=== PATIENT | female | born 1965 ===

== ENCOUNTER 2016-12-17 15:39 | Emergency (ER) | payer SELFPAY ==
[2016-12-17 15:45] VITALS: BP 108/66; PULSE 88; RESP 18; TEMP 98.1; O2SAT 99; BMI 25.4
--- NOTE | 2016-12-17 16:17 | ED PDOC ---
Arrival/HPI - General Chief Complaint: Female Genitourinary Time Seen by Provider: 12/17/16 16:14 Historian: Patient - History of Present Illness Narrative History of Present Illness (Text): 12/17/16 16:19 Patient presents c/o painless "bulge" she feels to the vagina for the past few days. Reports no abdominal pain, N/V/D, urinary symptoms, vaginal d/c or bleeding, fever, rash, has no other complaints. States that she saw her chief controller 2 months ago and had a normal pap smear. PMD [facility] Past Medical History - Provider Review Nursing Documentation Reviewed: Yes - Infectious Disease Hx of Infectious Diseases: None - Tetanus Immunization Tetanus Immunization: Unknown - Past Medical History Past Medical History: No Previous - Cardiac Hx Hypertension: Yes - Pulmonary Hx Respiratory Disorders: No - Neurological Hx Neurological Disorder: No - HEENT Hx HEENT Disorder: No - Renal Hx Renal Disorder: No - Endocrine/Metabolic Hx Endocrine Disorders: No - Hematological/Oncological Hx Blood Disorders: No - Integumentary Hx Dermatological Disorder: No - Musculoskeletal/Rheumatological Hx Musculoskeletal Disorders: No - Gastrointestinal Hx Gastrointestinal Disorders: No - Genitourinary/Gynecological Hx Genitourinary Disorders: No - Psychiatric Hx Psychophysiologic Disorder: No Hx Substance Use: No - Past Surgical History Past Surgical History: No Previous - Anesthesia Hx Anesthesia: No Hx Anesthesia Reactions: No Hx Malignant Hyperthermia: No - Suicidal Assessment Feels Threatened In Home Enviroment: No Family/Social History - Physician Review Nursing Documentation Reviewed: Yes Family/Social History: No Known Family HX Smoking Status: Never Smoked Hx Alcohol Use: No Hx Substance Use: No Hx Substance Use Treatment: No Allergies/Home Meds Allergies/Adverse Reactions: Allergies No Known Allergies Allergy (Verified 12/17/16 15:45) Home Medications: Home Meds Medication Instructions Recorded Confirmed HCTZ/Losartan Potassium [Hyzaar 1 tab PO DAILY 03/30/16 12/17/16 12.5 MG-50 MG] Review of Systems - Review of Systems Constitutional: Normal. absent: Fatigue, Weight Change, Fevers Respiratory: Normal. absent: SOB, Cough, Sputum Cardiovascular: Normal. absent: Chest Pain, Palpitations, Edema Gastrointestinal: Normal, Other (vaginal discomfort). absent: Abdominal Pain, Stool Changes, Appetite Changes Genitourinary Female: Normal. absent: Dysuria, Frequency, Hematuria, Urine Output Changes, Vaginal Bleeding, Vaginal Discharge Skin: Normal. absent: Rash, Pruritis, Skin Lesions Physical Exam Vital Signs Temp Pulse Resp BP Pulse Ox 12/17/16 15:43 98.1 F 88 18 108/66 99 Temperature: Afebrile Blood Pressure: Normal Pulse: Regular Respiratory Rate: Normal Appearance: Positive for: Well-Appearing, Non-Toxic, Comfortable Pain Distress: None Mental Status: Positive for: Alert and Oriented X 3 - Systems Exam Head: Present: Atraumatic, Normocephalic Neck: Present: Normal Range of Motion. No: MIDLINE TENDERNESS Respiratory/Chest: Present: Clear to Auscultation, Good Air Exchange. No: Respiratory Distress, Accessory Muscle Use, Wheezes, Rhonchi Cardiovascular: Present: Regular Rate and Rhythm, Normal S1, S2. No: Murmurs Abdomen: Present: Normal Bowel Sounds. No: Tenderness, Distention, Rebound, Guarding Genitourinary/Pelvic Exam: Present: Cervical os Closed, Other ((+) visible cervix at the vaginal introitous ). No: Vaginal Discharge, Vaginal Bleeding, Vaginal Lesions, Cervical Motion Tendernes Upper Extremity: Present: Normal Inspection Lower Extremity: Present: Normal Inspection Neurological: Present: GCS=15, CN II-XII Intact Skin: Present: Warm, Dry. No: Rashes Psychiatric: Present: Alert, Oriented x 3 Medical Decision Making ED Course and Treatment: 12/17/16 16:15 51 yo F presents to the ER for uterine prolapse. Prolapse reduced by PA using a speculum with success. Pt advised to f/u with her chief controller without fail in 2 days. - PA / CLINICAL LAB ASSISTANT / Resident Statement MD/DO has reviewed & agrees with the documentation as recorded. Disposition/Present on Arrival - Present on Arrival Any Indicators Present on Arrival: No History of DVT/PE: No History of Uncontrolled Diabetes: No Urinary Catheter: No History of Decub. Ulcer: No History Surgical Site Infection Following: None - Disposition Have Diagnosis and Disposition been Completed?: Yes Diagnosis: Uterine prolapse Disposition: HOME/ ROUTINE Disposition Time: 16:14 Patient Plan: Discharge Condition: STABLE Discharge Instructions (ExitCare): Uterine Prolapse (ED) Print Language: GUAMANIAN Additional Instructions: Follow up with your chief controller in 2 days without fail. Return to the ER for any new symptoms. Referrals: William Izaguirre MD [Primary Care Provider] - Follow up with primary
== END 2016-12-17 16:31 | disposition home or self-care (01) ==
LOC: ED 15:39
DX: N81.4 Uterovaginal prolapse, unspecified (principal)

== ENCOUNTER 2017-06-07 09:11 | Inpatient (IN) | payer OTHER ==
[2017-06-07] MEDS ORDERED: Sodium Chloride 0.9% 1,000 ML IV STA (09:30)
--- NOTE | 2017-06-07 09:44 | CT ---
PROCEDURE: CT HEAD WITHOUT CONTRAST. HISTORY: cva COMPARISON: 09/23/2015 TECHNIQUE: Axial computed tomography images were obtained through the head/brain without intravenous contrast. Radiation dose: Total exam DLP = 678.13 mGy-cm. This CT exam was performed using one or more of the following dose reduction techniques: Automated exposure control, adjustment of the mA and/or kV according to patient size, and/or use of iterative reconstruction technique. FINDINGS: HEMORRHAGE: No intracranial hemorrhage. BRAIN: No mass effect or edema. No atrophy or chronic microvascular ischemic changes. VENTRICLES: Unremarkable. No hydrocephalus. CALVARIUM: Unremarkable. PARANASAL SINUSES: Unremarkable as visualized. No significant inflammatory changes. MASTOID AIR CELLS: Unremarkable as visualized. No inflammatory changes. OTHER FINDINGS: None. IMPRESSION: Normal CT of the Head. No evidence of acute infarct. The findings in this examination were discussed by telephone with Dr. Velasco at 9:42 a.m. on 06/07/2017.
--- NOTE | 2017-06-07 09:59 | ED PDOC ---
Arrival/HPI - General Chief Complaint: Weakness/Neurological Deficit Time Seen by Provider: 06/07/17 09:28 Historian: Patient - History of Present Illness Narrative History of Present Illness (Text): 06/07/17 09:28 Noa Diamond is a 52 year old female, whose past medical history includes hypertension, who presents to the emergency department complaining of nausea, vomiting, and diarrhea at 05:00 this morning. At 08:30, patient states that she developed generalized weakness, sweats, and numbness, as well as a heavy tongue making it difficult to speak which last for about 3-5 minutes and resolved. Patient came to the emergency department with no acute deficits. Time/Duration: 4-6 hours Symptom Onset: Gradual Symptom Course: Improving Activities at Onset: Light Context: Home Past Medical History - Provider Review Nursing Documentation Reviewed: Yes - Infectious Disease Hx of Infectious Diseases: None - Tetanus Immunization Tetanus Immunization: Unknown - Past Medical History Past Medical History: No Previous - Cardiac Hx Cardiac Disorders: Yes Hx Hypertension: Yes - Pulmonary Hx Respiratory Disorders: No - Neurological Hx Neurological Disorder: No - HEENT Hx HEENT Disorder: No - Endocrine/Metabolic Hx Endocrine Disorders: No - Hematological/Oncological Hx Blood Disorders: No - Integumentary Hx Dermatological Disorder: No - Musculoskeletal/Rheumatological Hx Musculoskeletal Disorders: No - Gastrointestinal Hx Gastrointestinal Disorders: No - Genitourinary/Gynecological Hx Genitourinary Disorders: No - Psychiatric Hx Psychophysiologic Disorder: No Hx Substance Use: No - Past Surgical History Past Surgical History: No Previous - Anesthesia Hx Anesthesia: No Hx Anesthesia Reactions: No Hx Malignant Hyperthermia: No - Suicidal Assessment Feels Threatened In Home Enviroment: No Family/Social History - Physician Review Nursing Documentation Reviewed: Yes Family/Social History: No Known Family HX Smoking Status: Never Smoked Hx Alcohol Use: No Hx Substance Use: No Hx Substance Use Treatment: No Allergies/Home Meds Allergies/Adverse Reactions: Allergies No Known Allergies Allergy (Verified 06/07/17 09:24) Home Medications: Home Meds Medication Instructions Recorded Confirmed Gemfibrozil [Lopid] 600 mg PO BID 06/07/17 06/07/17 Losartan Potassium [Losartan 100 mg PO DAILY 06/07/17 06/07/17 Potassium] amLODIPine [Norvasc] 10 mg PO DAILY 06/07/17 06/07/17 hydroCHLOROthiazide [Hydrodiuril] 25 mg PO DAILY 06/07/17 06/07/17 Review of Systems - Physician Review All systems were reviewed & negative as marked: Yes - Review of Systems Constitutional: Other (generalized weakness, sweats, and numbness). absent: Fevers Eyes: absent: Vision Changes ENT: Other (heavy tongue, causing difficulty speaking). absent: Hearing Changes Respiratory: absent: SOB, Cough Cardiovascular: absent: Chest Pain Gastrointestinal: absent: Abdominal Pain Genitourinary Female: absent: Dysuria, Frequency Musculoskeletal: absent: Arthralgias, Back Pain Skin: absent: Rash, Pruritis Neurological: absent: Headache, Dizziness Endocrine: absent: Diaphoresis Hemo/Lymphatic: absent: Adenopathy Psychiatric: absent: Anxiety, Depression Physical Exam Vital Signs Reviewed: Yes Vital Signs Temp Pulse Resp BP Pulse Ox 06/07/17 11:34 78 22 149/87 100 06/07/17 09:49 97.9 F 77 17 139/78 99 Temperature: Afebrile Blood Pressure: Normal Pulse: Regular Respiratory Rate: Normal Appearance: Positive for: Well-Appearing, Non-Toxic, Comfortable Pain Distress: None Mental Status: Positive for: Alert and Oriented X 3 Finger Stick Blood Glucose: 122 Medical Decision Making ED Course and Treatment: 06/07/17 09:00 Impression: 52 year old female complaining of nausea, vomiting, and diarrhea at 05:00 this morning. At 08:30, patient states that she developed generalized weakness, sweats, and numbness, as well as a heavy tongue making it difficult to speak which last for about 3-5 minutes. Differential Diagnosis included but are not limited to: TIA Plan: -- EKG -- Labs -- IV fluids -- Reassess and disposition Prior Visits: Notes and results from previous visits were reviewed. Patient was last seen in the emergency department on 12/26/16 for a "bulge" in the uterine area. Patient was discharged home. Progress Notes: EKG: Ordered, reviewed, and independently interpreted the EKG. Rate : 77 BPM Rhythm : NSR Interpretation : No ST-segment elevations or depressions, no T-wave inversions, normal intervals. Comparison : No previous EKG for comparison. 06/07/17 09:20 Code Stroke called on patient. 06/07/17 10:[address] w/o contrast: Creator : Shekhar Nichols MD FINDINGS: HEMORRHAGE: No intracranial hemorrhage. BRAIN:No mass effect or edema. No atrophy or chronic microvascular ischemic changes. VENTRICLES:Unremarkable. No hydrocephalus. CALVARIUM:Unremarkable. PARANASAL SINUSES:Unremarkable as visualized. No significant inflammatory changes. MASTOID AIR CELLS:Unremarkable as visualized.No inflammatory changes. OTHER FINDINGS:None. IMPRESSION: Normal CT of the Head. No evidence of acute infarct. - Lab Interpretations Lab Results: 06/07/17 10:28 06/07/17 10:28 Lab Results 06/07/17 11:29: Urine Color Yellow, Urine Appearance Clear, Urine pH 6.0, Ur Specific [place] 1.025, Urine Protein 100 H, Urine Glucose (UA) Negative, Urine Ketones Negative, Urine Blood Large H, Urine Nitrate Negative, Urine Bilirubin Negative, Urine Urobilinogen 0.2, Ur Leukocyte Esterase Negative, Urine RBC 10 - 15, Urine WBC 0 - 2, Ur Epithelial Cells 4 - 5, Amorphous Sediment Few, Urine Bacteria Many, Fine Granular Casts 0 - 2, Coarse Granular Casts Trace H 06/07/17 10:51: POC Glucose (mg/dL) 102 06/07/17 10:28: Sodium 143, Potassium 4.9, Chloride 108 H, Carbon Dioxide 19 L, Anion Gap 21 H, BUN 31 H, Creatinine 1.1, Est GFR ( Amer) > 60, Est GFR ( Non-Af Amer) 53, Random Glucose 107, Calcium 10.7 H, Total Bilirubin 0.5, AST 60 H D, ALT 41, Alkaline Phosphatase 106, Total Protein 9.1 H, Albumin 4.7, Globulin 4.4, Albumin/Globulin Ratio 1.1 06/07/17 10:28: PT 10.4, INR 0.95 06/07/17 10:28: WBC 18.7 H D, RBC 4.74, Hgb 13.4 D, Hct 40.3, MCV 85.0, MCH 28.3, MCHC 33.3, RDW 13.9, Plt Count 322, MPV 9.9, Gran % 85.3 H, Lymph % (Auto ) 10.3 L, [place] % (Auto) 3.3, Eos % (Auto) 1.0 L, Baso % (Auto) 0.1, Gran # 15.92 H, Lymph # 1.9, Wal[place] # 0.6, Eos # 0.2, Baso # 0.02 I have reviewed the lab results: Yes Interpretation: All labs normal - RAD Interpretation Radiology Orders: 06/07/17 09:29 HEAD W/O (CODE STROKE) [CT] Stat 06/07/17 11:29 CHEST PORTABLE [RAD] Stat - Medication Orders Current Medication Orders: Sodium Chloride (Sodium Chloride 0.9%) 1,000 mls @ 30 mls/hr IV .Q24H STA Stop: 06/08/17 09:29 Last Admin: 06/07/17 10:45 Dose: 30 mls/hr eMAR Start Stop Document 06/07/17 10:45 RG (Rec: 06/07/17 10:46 RG [id number]) Intravenous Solution Start Date 06/07/17 Start Time 10:45 Discontinued Medications Aspirin (Aspirin Chewable) 324 mg PO STAT STA Stop: 06/07/17 12:37 Metoclopramide HCl (Reglan) 10 mg IVP STAT STA Stop: 06/07/17 11:26 Last Admin: 06/07/17 12:02 Dose: 10 mg IVP Administration Document 06/07/17 12:02 RG (Rec: 06/07/17 12:02 RG [id number]) Charges for Administration # of IVP Administrations 1 - Transfer of Care Other: Pt likely had a panic attack but since we cannot R/O tia WILL ADMIT NIHSS Scale (Donie) Time Performed: 10:00 - How Severe is the Stoke Baseline LOC to Questions: 0=Both comments correct LOC to commands: 0=Obeys both correctly Best Gaze: 0=Normal Visual: 0=No visual loss Facial: 0=Normal Motor Arm - Left: 0=No drift Motor Arm - Right: 0=No drift Motor Leg - Left: 0=No drift Motor Leg - Right: 0=No drift Limb Ataxia: 0=Absent Sensory: 0=Normal Best Language: 0=No aphasia Dysarthia: 0=Normal articulation Extinction & Inattention (Neglect): 0=Normal, no object Disposition/Present on Arrival - Present on Arrival Any Indicators Present on Arrival: No History of DVT/PE: No History of Uncontrolled Diabetes: No Urinary Catheter: No History of Decub. Ulcer: No History Surgical Site Infection Following: None - Disposition Have Diagnosis and Disposition been Completed?: Yes Diagnosis: TIA (transient ischemic attack) Disposition: HOSPITALIZED Disposition Time: 12:45 Patient Plan: Observation Condition: GOOD
[2017-06-07 10:43] LABS: BASO # 0.02 K/mm3 (0.0-2.0); BASO % 0.1 % (0.0-3.0); EOS # 0.2 (0.0-0.7); GRAN # 15.92 (1.4-6.5); GRAN % 85.3 % (50.0-68.0); HEMATOCRIT 40.3 % (36.0-48.0); LYMPH # 1.9 (1.2-3.4); LYMPH % 10.3 % (22.0-35.0); MEAN CORPUSCULAR HEMOGLOBIN 28.3 pg (25.0-35.0); MEAN CORPUSCULAR HGB CONC 33.3 g/dl (31.0-37.0); MEAN PLATELET VOLUME 9.9 fl (7.0-11.0); MONO # 0.6 (0.1-0.6); MONO % 3.3 % (1.0-6.0); RED CELL DISTRIBUTION WIDTH 13.9 % (11.5-14.5); WHITE BLOOD COUNT 18.7 10^3/ul (4.5-11.0)
[2017-06-07 10:52] LABS: INR 0.95 (0.93-1.08)
[2017-06-07 10:59] LABS: ALB/GLOB RATIO 1.1 (1.1-1.8); ALKALINE PHOSPHATASE 106 U/L (38-126); ALT/SGPT 41 U/L (7-56); AST/SGOT 60 U/L (14-36); BILIRUBIN,TOTAL 0.5 mg/dL (0.2-1.3); BLOOD UREA NITROGEN 31 mg/dL (7-21); CALCIUM 10.7 mg/dL (8.4-10.5); CARBON DIOXIDE 19 mmol/L (21-33); CHLORIDE 108 mmol/L (98-107); GFR AFRICAN-AMERICAN > 60; GLUCOSE,RANDOM 107 mg/dL (70-110); POTASSIUM 4.9 mmol/L (3.6-5.0); SODIUM 143 mmol/L (132-148); TOTAL PROTEIN 9.1 g/dL (5.8-8.3)
[2017-06-07 12:27] LABS: URINE BILIRUBIN NEGATIVE (NEGATIVE); URINE BLOOD LARGE (NEGATIVE); URINE GLUCOSE (UA) NEGATIVE (NEGATIVE); URINE KETONE NEGATIVE (NEGATIVE); URINE LEUKOCYTE ESTERASE NEGATIVE Leu/uL (NEGATIVE); URINE PROTEIN 100 mg/dL (<30 mg/dL); URINE UROBILINOGEN 0.2 E.U./dL (<1 E.U./dL)
[2017-06-07 12:31] LABS: URINE APPEARANCE CLEAR (CLEAR); URINE COLOR YELLOW (YELLOW)
[2017-06-07 12:41] LABS: URINE WBC 0 - 2 /hpf (0-6)
[2017-06-07 12:42] LABS: URINE BACTERIA MANY (NEG)
[2017-06-07 12:43] LABS: URINE AMORPHOUS SEDIMENT FEW
[2017-06-07 12:48] LABS: CHOLESTEROL 244 mg/dL (130-200)
--- NOTE | 2017-06-07 14:06 | RAD ---
HISTORY: tia COMPARISON: Comparison chest 10/21/2015. FINDINGS: LUNGS: No active pulmonary disease. PLEURA: No significant pleural effusion identified, no pneumothorax apparent. CARDIOVASCULAR: Normal. OSSEOUS STRUCTURES: No significant abnormalities. VISUALIZED UPPER ABDOMEN: Normal. OTHER FINDINGS: None. IMPRESSION: No active disease.
--- NOTE | 2017-06-07 16:03 | MRI ---
PROCEDURE: MRI BRAIN WITHOUT CONTRAST HISTORY: Neurologic changes; TIA versus CVA COMPARISON: Comparison made with CT scan of the brain dated 06/07/2017 TECHNIQUE: Multiplanar, multisequence MR images of the brain were obtained without intravenous contrast enhancement. FINDINGS: HEMORRHAGE: No acute parenchymal, subarachnoid nor extra-axial hemorrhage. No evidence of hemosiderin deposition identified on gradient echo weighted sequence DWI: No evidence of an acute or early subacute infarction seen on diffusion imaging. BRAIN PARENCHYMA: There are a several tiny nonspecific focal areas of increased T2 signal seen scattered about the subcortical white matter of the left and to a lesser degree right frontal lobes. Changes are nonspecific though could represent minimal chronic sequela of small vessel disease. Differential diagnosis would include sequela of old trauma, migraine headaches, post infectious and or inflammatory etiologies. Atypical presentation of a demyelinating disease process would be less likely in the absence of a pertinent clinical history though not completely excluded. . Note made of minimal slightly confluent prolonged T2 signal changes in the periventricular white matter likely representing mild FLAIR related CSF interface artifact. The possibility of some minimal chronic periventricular white matter ischemic changes not completely excluded. Ventricular and sulcal size are within range of normal for this patient's stated age. VENTRICLES: No obstructive hydrocephalus. CRANIUM: Unremarkable. ORBITS: Orbits and contents grossly unremarkable. PARANASAL SINUSES/MASTOIDS: Mild moderate delete polypoid like mucosal thickening both maxillary antra. Minor mucosal thickening in the ethmoid air complex extending superiorly into inferior aspect of the frontal sinus more so on the left than the right. VASCULAR SYSTEM: Visualized major vascular flow voids at skull base patent. OTHER FINDINGS: None. IMPRESSION: No acute intracranial hemorrhage or infarct. There are several tiny nonspecific focal areas of increased T2 signal seen scattered about the frontal subcortical white matter bilaterally right more left. These findings most likely represent minimal chronic sequela of small vessel disease however see above discussion for additional differential diagnostic considerations. Mucoperiosteal inflammatory changes within the aforementioned paranasal sinuses.
--- NOTE | 2017-06-07 16:37 | CT ---
PROCEDURE: CT Abdomen and Pelvis without intravenous contrast HISTORY: abdominal pain COMPARISON: 10/21/2015 TECHNIQUE: Without contrast.. Contrast Dose: 0 Radiation dose: Total exam DLP = 326.10 mGy-cm. This CT exam was performed using one or more of the following dose reduction techniques: Automated exposure control, adjustment of the mA and/or kV according to patient size, and/or use of iterative reconstruction technique. FINDINGS: LOWER THORAX: Cystic left paravertebral smooth ovoid mass, 2.2 x 2.7 cm. This is seen along left lateral aspect of the T10 vertebra, posterior/lateral to the aorta. Minimally enlarged compared to prior examination. Etiology uncertain. Consider cystic schwannoma, lymphangioma. LIVER: Unremarkable. No gross lesion or ductal dilatation. GALLBLADDER AND BILE DUCTS: Cholelithiasis. 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 PANCREAS: Unremarkable. No gross lesion or ductal dilatation. SPLEEN: Unremarkable. ADRENALS: Unremarkable. No mass. KIDNEYS AND URETERS: Unremarkable. No hydronephrosis. No solid mass. VASCULATURE: Unremarkable. No aortic aneurysm. BOWEL: Unremarkable. No obstruction. No gross mural thickening. APPENDIX: Unremarkable. Normal appendix. PERITONEUM: Unremarkable. No free fluid. No free air. LYMPH NODES: Unremarkable. No enlarged lymph nodes. BLADDER: Unremarkable. REPRODUCTIVE: Unremarkable uterus. Possible left ovarian cyst, 3.3 cm. Correlate with pelvic ultrasound. BONES: No acute fracture. OTHER FINDINGS: None. IMPRESSION: No acute abnormality. Slight increase in size of cystic left paravertebral mass adjacent to the T10 vertebra. 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 No evidence of cholecystitis. Possible 3.3 cm left ovarian cyst. Correlate with pelvic ultrasound.
--- NOTE | 2017-06-07 16:48 | CP.PCM.HP ---
<Vandana Jose - Last Filed: 06/07/17 16:13> History of Present Illness - History of Present Illness History of Present Illness: Vandana Jose, PGY1, H&P for Dr Mi: CC: transient dysarthria and lower extremity weakness, nausea, vomiting, diarrhea 52 years old female with hx of HTN, presents for transient dysarthria and lower extremity weakness x 1-2 minutes. Pt states that she woke up this morning, with nausea and vomiting, 3-4 episodes, nonbilious and nonbloody, yellow food. She then started having mid abdominal pain and having yellow, non bloody diarrheal episodes, 7 since this AM. Pt denies unusual food, sick contacts, recent travel , recent antibiotic/steroid use. Denies dyspepsia, bloating, hematemesis, hematochezia, melena, rectal pain. Pt also states that in the afternoon, she started feeling a "purple tongue," with speech difficulty and bilateral lower extremity weakness, which lasted 1-2 minutes, with full resolution after the episode. Denies postictal confusion, LOC, syncope, convulsions, tongue biting, urinary/bladder incontinence, history of seizures/prior episodes. In ED, pt afebrile, with leukocytosis 18.7, mildly elevated AST 60, ALT 41, UA shows many bacteria. Pt has no neurological deficits. Denies sob, cp, pleuritic chest pain, cough, chest congestion, dysuria, hematuria, leg swelling. Reports increased urinary frequency. 12 point ROS obtained and reviewed, and negative, except as noted per HPI. PMH: HTN PSH: denies All: NKA FH: denies SH: Lives with son and family. Denies alcohol/tobacco/drug use. PMD Dr Izaguirre Home meds: as per meds recs Present on Admission - Present on Admission Any Indicators Present on Admission: No History of DVT/PE: No History of Uncontrolled Diabetes: No Urinary Catheter: No Decubitus Ulcer Present: No Review of Systems - Review of Systems All systems: reviewed and no additional remarkable complaints except Review of Systems: as per HPI Past Patient History - Infectious Disease Hx of Infectious Diseases: None - Tetanus Immunizations Tetanus Immunization: Unknown - Past Social History Smoking Status: Never Smoked - CARDIAC Hx Cardiac Disorders: Yes Hx Hypertension: Yes - PULMONARY Hx Respiratory Disorders: No - NEUROLOGICAL Hx Neurological Disorder: No - HEENT Hx HEENT Problems: No - ENDOCRINE/METABOLIC Hx Endocrine Disorders: No - HEMATOLOGICAL/ONCOLOGICAL Hx Blood Disorders: No - INTEGUMENTARY Hx Dermatological Problems: No - MUSCULOSKELETAL/RHEUMATOLOGICAL Hx Musculoskeletal Disorders: No Hx Falls: No - GASTROINTESTINAL Hx Gastrointestinal Disorders: No - GENITOURINARY/GYNECOLOGICAL Hx Genitourinary Disorders: No - PSYCHIATRIC Hx Psychophysiologic Disorder: No - SURGICAL HISTORY Hx Surgeries: No - ANESTHESIA Hx Anesthesia: No Hx Anesthesia Reactions: No Hx Malignant Hyperthermia: No Meds Allergies/Adverse Reactions: Allergies Allergy/AdvReac Type Severity Reaction Status Date / Time No Known Allergies Allergy Verified 06/07/17 09:24 Physical Exam - Constitutional Appears: Non-toxic, No Acute Distress, Older Than Stated Age - Head Exam Head Exam: ATRAUMATIC, NORMOCEPHALIC - Eye Exam Eye Exam: EOMI, PERRL. absent: Conjunctival injection, Scleral icterus Pupil Exam: NORMAL ACCOMODATION, PERRL. absent: Fixed, Irregular - ENT Exam ENT Exam: Mucous Membranes Moist - Respiratory Exam Respiratory Exam: Clear to Auscultation Bilateral. absent: Chest Wall Tenderness, Respiratory Distress - Cardiovascular Exam Cardiovascular Exam: REGULAR RHYTHM, RRR, +S1, +S2. absent: Systolic Murmur - GI/Abdominal Exam GI & Abdominal Exam: Normal Bowel Sounds, Soft, Tenderness. absent: Distended, Firm, Guarding, Mass, Organomegaly, Rebound, Rigid Additional comments: TTP in epigastric and mid abdominal area - Extremities Exam Extremities exam: Negative for: calf tenderness, pedal edema - Back Exam Back exam: NORMAL INSPECTION - Neurological Exam Neurological exam: Alert, CN II-XII Intact, Motor Sensory Deficit, Oriented x3, Reflexes Normal Additional comments: No dysmetria - Psychiatric Exam Psychiatric exam: Anxious - Skin Skin Exam: Dry, Normal Color, Warm Results - Vital Signs Recent Vital Signs: Last Vital Signs Temp 98.6 F 06/07/17 12:53 Pulse 78 06/07/17 12:53 Resp 18 06/07/17 12:53 BP 124/78 06/07/17 14:09 Pulse Ox 100 06/07/17 11:34 - Labs Result Diagrams: 06/07/17 10:28 06/07/17 10:28 Labs: Laboratory Results - last 24 hr 06/07/17 12:38 Triglycerides 197 H Cholesterol 244 H LDL Cholesterol Direct 153 H HDL Cholesterol 50 Assessment & Plan - Assessment and Plan (Free Text) Assessment: 52 years old female with PMH HTN, HLD, presents for transient dysarthria and b/ l lower extremity weakness, and nausea/vomiting/diarrhea: Leukocytosis: - wbc 18.7, afebrile, f/u UA - CXR neg - UA shows many bacteria, neg for leuk est and nitrate; f/u urine culture - f/u blood cultures - will follow serial cbc Transient dysarthria and b/l lower extremity weakness: - 2/2 likely TIA vs CVA vs dehydration 2/2 n/v vs psychogenic - CT head neg - MRI brain shows no acute intracranial hemorrhage or infarct. There are several tiny nonspecific focal areas of increased T2 signal seen scattered about the frontal subcortical white matter bilaterally right more left. These findings most likely represent minimal chronic sequela of small vessel disease. - ASA 325 mg give. Start ASA 81 mg, statin. Obtain echo, carotid US. - Neurochecks q 4h. - Neuro c/s. F/u recs - Cont to monitor Nausea, vomiting, diarrhea, abdominal pain: 2/2 likely viral gastroenteritis vs colitis (c diff) vs diverticulitis vs IBD - No recent abx use. - CT abd pelvis shows no acute abnormality. Slight increase in size of cystic left paravertebral mass adjacent to the T10 vertebra (visualized in previous Ct abd pelvis ). 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 No evidence of cholecystitis. Possible 3.3 cm left ovarian cyst. Correlate with pelvic ultrasound. - Obtain c diff, stool culture, fecal leuks - Protonix and zofran prn - Currently, the vomiting and diarrhea have resolved. Pt is hungry. Will start Heart healthy diet. Monitor tolerance. Hx of HTN: - cont home meds Norvasc, HCTZ, Losartan Hx of HLD: - cont home med Lopid - LDL 82, maintain <70 - will add statin DVT ppx: SCDs GI PPX: protonix Discussed with Dr Mi. Vandana Jose, PGY1 - Date & Time Date: 06/07/17 Time: 16:51 <Desean Mi - Last Filed: 06/07/17 17:16> Results - Vital Signs Recent Vital Signs: Last Vital Signs Temp 98.6 F 06/07/17 12:53 Pulse 78 06/07/17 12:53 Resp 18 06/07/17 12:53 BP 124/78 06/07/17 14:09 Pulse Ox 100 06/07/17 11:34 - Labs Result Diagrams: 06/07/17 10:28 06/07/17 10:28 Labs: Laboratory Results - last 24 hr 06/07/17 12:38 Triglycerides 197 H Cholesterol 244 H LDL Cholesterol Direct 153 H HDL Cholesterol 50 Attending/Attestation - Attestation I have personally seen and examined this patient.: Yes I have fully participated in the care of the patient.: Yes I have reviewed all pertinent clinical information: Yes Notes (Text): 06/07/17 17:11 52 year old female with past medical history of hypertension and dyslipidemia presented with transient LE weakness and dysarthria. Also complained of abdominal pain with nausea, vomiting and diarrhea since this morning. CT head was negative for acute findings. MRI brain showed no acute intracranial hemorrhage or infarct; possible minimal chronic sequela of small vessel disease was seen. She is pending echocardiogram and carotid doppler. PT and neurology evaluation were also requested. Continue with aspirin and statin. Abdominal symptoms likely secondary to acute gastroenteritis. Stool studies are ordered. CT abd/pelvis reviewed as above. Continue with protonix and zofran. Advance diet as tolerated. Leukocytosis likely reactive secondary to above. CXR/Ua were negative. Will monitor. Desean Mi MD Hospitalist.
[2017-06-07] MEDS: Pantoprazole 40 mg Susp UD PO SCH (16:55)
[2017-06-07] MEDS: Sodium Chloride 0.9% 1,000 ML IV SCH (17:00)
[2017-06-07 21:05] LABS: URINE BILIRUBIN NEGATIVE (NEGATIVE); URINE GLUCOSE (UA) NEGATIVE (NEGATIVE); URINE KETONE NEGATIVE (NEGATIVE); URINE LEUKOCYTE ESTERASE NEGATIVE Leu/uL (NEGATIVE); URINE PROTEIN 30 mg/dL (<30 mg/dL); URINE UROBILINOGEN 0.2 E.U./dL (<1 E.U./dL)
[2017-06-07 21:15] LABS: URINE BLOOD LARGE (NEGATIVE)
[2017-06-07 21:16] LABS: URINE APPEARANCE SLIGHT-CLOUDY (CLEAR); URINE COLOR YELLOW (YELLOW)
[2017-06-07 21:34] LABS: URINE RBC 15 - 20 /hpf (0-2)
--- NOTE | 2017-06-07 22:50 | CON ---
HISTORY OF PRESENT ILLNESS: This is a 52-year-old female with past medical history of hypertension, came with dysarthria and lower extremity weakness. The patient woke up in the morning with nausea, vomiting and also complaint of abdominal pain and nonbloody diarrhea. Came to hospital for weakness. PAST MEDICAL HISTORY: Hypertension. ALLERGY: NO KNOWN DRUG ALLERGY. SOCIAL HISTORY: Lives with the son. PHYSICAL EXAMINATION: HEENT: Normocephalic, atraumatic. NECK: Supple. NEUROLOGIC: Alert, awake, oriented x3. No aphasia. Cranial nerves II through XII tested. Pupils reactive. EOM intact. Visual pak full. No facial asymmetry. Tongue midline. Motor examination: Moves all the extremities equally. Tone normal. Deep tendon reflexes 1+. Plantars are downgoing. Sensory appears intact. Cerebellar, gait deferred. IMPRESSION: Transient ischemic attack and multiple medical problem like hypertension, dyslipidemia. A CAT scan was negative. MRI also negative. Continue present management. We will follow up. Warren Cramer MD
[2017-06-08] MEDS: Sodium Chloride 0.9% 1,000 ML IV SCH (05:57)
[2017-06-08] MEDS: Pantoprazole 40 mg Susp UD PO SCH ×2 (05:58→16:30)
[2017-06-08 07:45] LABS: ALB/GLOB RATIO 1.1 (1.1-1.8); ALKALINE PHOSPHATASE 71 U/L (38-126); ALT/SGPT 31 U/L (7-56); AST/SGOT 35 U/L (14-36); BILIRUBIN,TOTAL 0.8 mg/dL (0.2-1.3); BLOOD UREA NITROGEN 25 mg/dL (7-21); CALCIUM 8.7 mg/dL (8.4-10.5); CARBON DIOXIDE 18 mmol/L (21-33); CHLORIDE 111 mmol/L (98-107); GFR AFRICAN-AMERICAN > 60; GLUCOSE,RANDOM 93 mg/dL (70-110); POTASSIUM 4.1 mmol/L (3.6-5.0); SODIUM 140 mmol/L (132-148)
[2017-06-08 07:54] LABS: BASO # 0.02 K/mm3 (0.0-2.0); BASO % 0.3 % (0.0-3.0); EOS # 0.5 (0.0-0.7); EOS % 6.7 % (1.5-5.0); GRAN # 3.94 (1.4-6.5); GRAN % 52.6 % (50.0-68.0); HEMATOCRIT 32.9 % (36.0-48.0); LYMPH # 2.6 (1.2-3.4); LYMPH % 34.3 % (22.0-35.0); MEAN CELL VOLUME 84.8 fl (80.0-105.0); MEAN CORPUSCULAR HEMOGLOBIN 27.1 pg (25.0-35.0); MEAN CORPUSCULAR HGB CONC 31.9 g/dl (31.0-37.0); MONO # 0.5 (0.1-0.6); MONO % 6.1 % (1.0-6.0); RED CELL DISTRIBUTION WIDTH 14.1 % (11.5-14.5); WHITE BLOOD COUNT 7.5 10^3/ul (4.5-11.0)
--- NOTE | 2017-06-08 09:03 | CARD ---
APPROVED REPORT EXAM: Two-dimensional and M-mode echocardiogram with Doppler and color Doppler. Other Information Quality : GoodRhythm : INDICATION CVA/TIA 2D DIMENSIONS Left Atrium (2D)3.4 (1.6-4.0cm)IVSd1.0 (0.7-1.1cm) LVDd3.7 (3.9-5.9cm)PWd1.1 (0.7-1.1cm) LVDs2.5 (2.5-4.0cm)FS (%) 33.4 % LVEF (%)63.0 (>50%) M-Mode DIMENSIONS Aortic Root2.70 (2.2-3.7cm)Aortic Cusp Exc.1.80 (1.5-2.0cm) Aortic Valve AoV Peak Awkphteb537.0cm/s Mitral Valve MV E Exajiqzp29.9cm/sMV A Dovjwoyg19.1cm/sE/A ratio0.8 TDI E/Lateral E'0.0E/Medial E'0.0 Tricuspid Valve TR Peak [id number]/sRAP [id number] Peak Gr.15mmHg [id number] LEFT VENTRICLE The left ventricle is normal size. There is normal left ventricular wall thickness. The left ventricular function is normal. The left ventricular ejection fraction is within the normal range. There is normal LV segmental wall motion. RIGHT VENTRICLE The right ventricle is normal size. ATRIA The left atrium size is normal. The right atrium size is normal. The interatrial septum is intact with no evidence for an atrial septal defect. AORTIC VALVE The aortic valve is normal in structure. MITRAL VALVE The mitral valve is normal in structure. Mitral regurgitation is trace. TRICUSPID VALVE The tricuspid valve is normal in structure. There is trace tricuspid regurgitation. PULMONIC VALVE The pulmonic valve is not well visualized. GREAT VESSELS The aortic root is normal in size. PERICARDIAL EFFUSION There is no pericardial effusion. <Conclusion> The left ventricle is normal size. There is normal left ventricular wall thickness. The left ventricular function is normal.
--- NOTE | 2017-06-08 09:33 | CARD ---
APPROVED REPORT EKG Measurement Heart [id number] CT [id number] <Conclusion> Normal sinus rhythm Normal ECG No change
--- NOTE | 2017-06-08 12:11 | CP.PCM.PN ---
<Vandana Jose - Last Filed: 06/08/17 12:07> Subjective - Date & Time of Evaluation Date of Evaluation: 06/08/17 Time of Evaluation: 12:07 - Subjective Subjective: Vandana Jose, PGY1, Medicine Progress Note for Dr Mi: Patient seen and examined at bedside. Pt reports 9 episodes of nonbloody, yellow watery diarrhea within past 24 hours (2 this AM), and mild lower abdominal pain. Denies nausea, vomiting, fever, chills, dyspepsia, cp, sob, difficulty with speech, weakness, numbness, tingling or any focal deficits. Pt tolerated heart healthy diet yesterday, ate rice, tomato soup with no emesis. Objective - Vital Signs/Intake and Output Vital Signs (last 24 hours): Temp Pulse Resp BP Pulse Ox 98.2 F 88 18 110/66 98 06/08/17 07:32 06/08/17 07:32 06/08/17 07:32 06/08/17 10:39 06/08/17 07:32 Intake and Output: 06/08/17 06/08/17 06:59 18:59 Intake Total 4080 Balance 4080 - Medications Medications: Current Medications Amlodipine Besylate (Norvasc) 10 mg PO DAILY [facility] Last Admin: 06/08/17 10:39 Dose: 10 mg Aspirin (Aspirin Chewable) 81 mg PO DAILY [facility] Last Admin: 06/08/17 10:39 Dose: 81 mg Atorvastatin Calcium (Lipitor) 40 mg PO DIN [facility] Last Admin: 06/07/17 16:55 Dose: 40 mg Gemfibrozil (Lopid) 600 mg PO BID [facility] Last Admin: 06/08/17 10:39 Dose: 600 mg Hydrochlorothiazide (Hydrodiuril) 25 mg PO DAILY [facility] Last Admin: 06/08/17 10:39 Dose: 25 mg Sodium Chloride (Sodium Chloride 0.9%) 1,000 mls @ 100 mls/hr IV .Q10H [facility] Last Admin: 06/08/17 05:57 Dose: 100 mls/hr Ibuprofen (Motrin Tab) 400 mg PO Q6H PRN PRN Reason: Pain, moderate (4-7) Losartan Potassium (Cozaar) 100 mg PO DAILY [facility] Last Admin: 06/08/17 10:39 Dose: 100 mg Ondansetron HCl (Zofran Tab) 4 mg PO Q6H PRN PRN Reason: Nausea/Vomiting Pantoprazole Sodium (Protonix Susp) 40 mg PO 0600,1600 [facility] Last Admin: 06/08/17 05:58 Dose: 40 mg - Labs Labs: 06/08/17 06:20 06/08/17 06:20 PT 10.4 SECONDS (9.4-12.5) 06/07/17 10:28 INR 0.95 (0.93-1.08) 06/07/17 10:28 - Constitutional Appears: Non-toxic, No Acute Distress, Older Than Stated Age - Head Exam Head Exam: ATRAUMATIC, NORMOCEPHALIC - Eye Exam Eye Exam: EOMI, PERRL Pupil Exam: PERRL - ENT Exam ENT Exam: Mucous Membranes Moist - Neck Exam Neck Exam: Full ROM - Respiratory Exam Respiratory Exam: Clear to Ausculation Bilateral. absent: Accessory Muscle Use , Chest Wall Tenderness, Respiratory Distress - Cardiovascular Exam Cardiovascular Exam: RRR, +S1, +S2. absent: Irregular Rhythm - GI/Abdominal Exam GI & Abdominal Exam: Soft, Normal Bowel Sounds. absent: Distended, Guarding, Tenderness, Mass, Organomegaly, Rebound - Extremities Exam Extremities Exam: absent: Calf Tenderness, Pedal Edema - Back Exam Back Exam: NORMAL INSPECTION - Neurological Exam Neurological Exam: Alert, Awake, CN II-XII Intact, Oriented x3. absent: Motor Sensory Deficit - Psychiatric Exam Psychiatric exam: Normal Affect, Normal Mood - Skin Skin Exam: Dry, Normal Color, Warm Assessment and Plan - Assessment and Plan (Free Text) Assessment: 52 years old female with PMH HTN, HLD, presents for transient dysarthria and b/ l lower extremity weakness, and nausea/vomiting/diarrhea/abdominal pain: Leukocytosis, resolved: 2/2 likely reactive from gastroenteritis vs colitis (c diff) - wbc 18.7 ->7.5 today, afebrile - CXR neg - UA shows many bacteria, neg for leuk est and nitrate; f/u urine culture - f/u blood cultures - will follow serial cbc Transient dysarthria and b/l lower extremity weakness: - 2/2 likely TIA vs CVA vs dehydration 2/2 n/v vs psychogenic - CT head neg - MRI brain shows no acute intracranial hemorrhage or infarct. There are several tiny nonspecific focal areas of increased T2 signal seen scattered about the frontal subcortical white matter bilaterally right more left. These findings most likely represent minimal chronic sequela of small vessel disease. L ovary 3.3 cm cyst. Previosly seen cyst 2.1x1.2x1.6 cm left ovarian cyst on pelvic US 10/2016. Will recommend outpatient [facility] follow up for the increasing size of the cyst. - ASA 325 mg given. Cont with ASA 81 mg, statin. - Echo shows EF 63%, n atrial/vent dilatation, valvular abnormalities. Pend Carotid US reading. - Neurochecks q 4h. - Neuro c/s. F/u recs. will cont with ASA and statin. - Cont to monitor Nausea, vomiting, diarrhea, abdominal pain: 2/2 likely viral gastroenteritis vs colitis (c diff) vs diverticulitis vs IBD - No recent abx use. - Still has watery diarrhea and mild abdominal pain, resolved nausea, vomiting. - CT abd pelvis shows no acute abnormality. Slight increase in size of cystic left paravertebral mass adjacent to the T10 vertebra (visualized in previous Ct abd pelvis ). 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 No evidence of cholecystitis. Possible 3.3 cm left ovarian cyst. Correlate with pelvic ultrasound. - Awaiting c diff, stool culture, fecal leuks - If C diff negative, can start Loperamide or Imodium. - Protonix and zofran prn - Tolerating regular diet well R ovarian cyst: - discussed above, outpatient [facility] follow up. Hx of HTN: - cont home meds Norvasc, HCTZ, Losartan Hx of HLD: - cont home med Lopid - LDL 82, maintain <70 - will add statin DVT ppx: SCDs GI PPX: protonix Discussed with Dr Mi. Vandana Jose, PGY1 <Desean Mi - Last Filed: 06/08/17 15:05> Objective - Vital Signs/Intake and Output Vital Signs (last 24 hours): Temp Pulse Resp BP Pulse Ox 98.2 F 84 18 110/66 98 06/08/17 07:32 06/08/17 10:00 06/08/17 07:32 06/08/17 10:39 06/08/17 07:32 Intake and Output: 06/08/17 06/08/17 06:59 18:59 Intake Total 4080 Balance 4080 - Medications Medications: Current Medications Amlodipine Besylate (Norvasc) 10 mg PO DAILY [facility] Last Admin: 06/08/17 10:39 Dose: 10 mg Aspirin (Aspirin Chewable) 81 mg PO DAILY [facility] Last Admin: 06/08/17 10:39 Dose: 81 mg Atorvastatin Calcium (Lipitor) 40 mg PO DIN [facility] Last Admin: 06/07/17 16:55 Dose: 40 mg Gemfibrozil (Lopid) 600 mg PO BID [facility] Last Admin: 06/08/17 10:39 Dose: 600 mg Hydrochlorothiazide (Hydrodiuril) 25 mg PO DAILY [facility] Last Admin: 06/08/17 10:39 Dose: 25 mg Sodium Chloride (Sodium Chloride 0.9%) 1,000 mls @ 100 mls/hr IV .Q10H [facility] Last Admin: 06/08/17 05:57 Dose: 100 mls/hr Ibuprofen (Motrin Tab) 400 mg PO Q6H PRN PRN Reason: Pain, moderate (4-7) Loperamide HCl (Imodium) 2 mg PO QID PRN PRN Reason: Diarrhea Losartan Potassium (Cozaar) 100 mg PO DAILY [facility] Last Admin: 06/08/17 10:39 Dose: 100 mg Ondansetron HCl (Zofran Tab) 4 mg PO Q6H PRN PRN Reason: Nausea/Vomiting Pantoprazole Sodium (Protonix Susp) 40 mg PO 0600,1600 [facility] Last Admin: 06/08/17 05:58 Dose: 40 mg - Labs Labs: 06/08/17 06:20 06/08/17 06:20 PT 10.4 SECONDS (9.4-12.5) 06/07/17 10:28 INR 0.95 (0.93-1.08) 06/07/17 10:28 Attending/Attestation - Attestation I have personally seen and examined this patient.: Yes I have fully participated in the care of the patient.: Yes I have reviewed all pertinent clinical information, including history, physical exam and plan: Yes Notes (Text): 06/08/17 15:02 52 year old female with past medical history of hypertension and dyslipidemia presented with transient LE weakness and dysarthria. CT head was negative for acute findings. MRI brain showed no acute intracranial hemorrhage or infarct; possible minimal chronic sequela of small vessel disease was seen. Echocardiogram and carotid dopplers were reviewed. PT and neurology evaluation were appreciated. She is on aspirin and statin. Her symptoms have resolved. She also initially complained of abdominal pain with nausea, vomiting and diarrhea likely secondary to acute gastroenteritis. CT abd/pelvis reviewed as above. Recommended outpatient gynecology follow up. Still reports diarrhea (9- 10 BMs since last night). CDIf was negative. Can add imodium prn. Leukocytosis likely reactive secondary to above which has resolved. D/c planning once diarrhea improves. Desean Mi MD Hospitalist.
--- NOTE | 2017-06-08 14:29 | US ---
PROCEDURE: Bilateral carotid artery duplex ultrasound HISTORY: Carotid stenosis TIA PHYSICIAN(S): Shekhar Izaguirre MD. TECHNIQUE: Duplex sonography and color-flow Doppler were used to evaluate the carotid bifurcations and limited segments of the vertebral arteries bilaterally. FINDINGS: There is mild smooth hypoechoic plaque noted at the carotid bifurcations bilaterally. The peak systolic velocity in the proximal right internal carotid artery is 61 cm/sec. This corresponds to a 20 to 39% proximal right ICA stenosis. Normal systolic velocities are noted in the proximal right external carotid artery. There is antegrade flow in the right vertebral artery. The peak systolic velocity in the proximal left internal carotid artery is 78 cm/sec. This corresponds to a 20 to 39% proximal left ICA stenosis. Normal systolic velocities are noted in the proximal left external carotid artery. There is antegrade flow in the left vertebral artery. IMPRESSION: 1. Bilateral 20-39% proximal ICA stenoses. 2. Antegrade flow in both vertebral arteries.
[2017-06-08 17:19] VITALS: RESP 20; O2SAT 99
[2017-06-09 07:22] LABS: BASO # 0.02 K/mm3 (0.0-2.0); BASO % 0.3 % (0.0-3.0); EOS # 0.6 (0.0-0.7); EOS % 7.6 % (1.5-5.0); GRAN # 3.63 (1.4-6.5); GRAN % 50.2 % (50.0-68.0); HEMATOCRIT 31.1 % (36.0-48.0); LYMPH # 2.5 (1.2-3.4); LYMPH % 35.1 % (22.0-35.0); MEAN CORPUSCULAR HEMOGLOBIN 27.3 pg (25.0-35.0); MEAN CORPUSCULAR HGB CONC 32.2 g/dl (31.0-37.0); MEAN PLATELET VOLUME 9.7 fl (7.0-11.0); MONO # 0.5 (0.1-0.6); MONO % 6.8 % (1.0-6.0); WHITE BLOOD COUNT 7.2 10^3/ul (4.5-11.0)
[2017-06-09 08:01] LABS: ALB/GLOB RATIO 1.1 (1.1-1.8); ALKALINE PHOSPHATASE 74 U/L (38-126); ALT/SGPT 34 U/L (7-56); AST/SGOT 43 U/L (14-36); BILIRUBIN,TOTAL 0.4 mg/dL (0.2-1.3); BLOOD UREA NITROGEN 23 mg/dL (7-21); CALCIUM 8.5 mg/dL (8.4-10.5); CARBON DIOXIDE 19 mmol/L (21-33); CHLORIDE 112 mmol/L (98-107); GFR AFRICAN-AMERICAN > 60; GLUCOSE,RANDOM 104 mg/dL (70-110); POTASSIUM 3.9 mmol/L (3.6-5.0); SODIUM 141 mmol/L (132-148); TOTAL PROTEIN 6.6 g/dL (5.8-8.3)
[2017-06-09] MEDS: Pantoprazole 40 mg Susp UD PO SCH (09:33)
[2017-06-09] MEDS: Sodium Chloride 0.9% 1,000 ML IV SCH (09:34)
[2017-06-09 09:40] VITALS: BP 115/62
[2017-06-09 09:51] VITALS: TEMP 97.9
[2017-06-09 11:46] VITALS: PULSE 86
--- NOTE | 2017-06-09 16:52 | CP.PCM.DIS ---
<Vandana Jose - Last Filed: 06/09/17 16:50> Provider - Provider Date of Admission: 06/07/17 11:30 Attending physician: Desean Mi MD Primary care physician: Chantale MIDDLETONC Consults: Neurology: Dr Cramer Time Spent in preparation of Discharge (in minutes): 35 Diagnosis - Discharge Diagnosis (1) Gastroenteritis Status: Acute (2) TIA (transient ischemic attack) Status: Acute Hospital Course - Lab Results Lab Results: Micro Results 06/07/17 14:00 Blood Blood Culture - Preliminary NO GROWTH AFTER 48 HOURS 06/07/17 20:59 Urine,Random Urine Culture - Final No Growth (<1,000 CFU/ML) 06/07/17 20:59 Stool C. difficile Antigen & Toxin A,B (M - Final Most Recent Lab Values WBC 7.2 10^3/ul (4.5-11.0) 06/09/17 06:30 RBC 3.66 10^6/uL (3.5-6.1) 06/09/17 06:30 Hgb 10.0 g/dL (12.0-16.0) L 06/09/17 06:30 Hct 31.1 % (36.0-48.0) L 06/09/17 06:30 MCV 85.0 fl (80.0-105.0) 06/09/17 06:30 MCH 27.3 pg (25.0-35.0) 06/09/17 06:30 MCHC 32.2 g/dl (31.0-37.0) 06/09/17 06:30 RDW 14.0 % (11.5-14.5) 06/09/17 06:30 Plt Count 283 10^3/uL (120.0-450.0) 06/09/17 06:30 MPV 9.7 fl (7.0-11.0) 06/09/17 06:30 Gran % 50.2 % (50.0-68.0) 06/09/17 06:30 Lymph % (Auto) 35.1 % (22.0-35.0) H 06/09/17 06:30 Lyman % (Auto) 6.8 % (1.0-6.0) H 06/09/17 06:30 Eos % (Auto) 7.6 % (1.5-5.0) H 06/09/17 06:30 Baso % (Auto) 0.3 % (0.0-3.0) 06/09/17 06:30 Gran # 3.63 (1.4-6.5) 06/09/17 06:30 Lymph # 2.5 (1.2-3.4) 06/09/17 06:30 Lyman # 0.5 (0.1-0.6) 06/09/17 06:30 Eos # 0.6 (0.0-0.7) 06/09/17 06:30 Baso # 0.02 K/mm3 (0.0-2.0) 06/09/17 06:30 PT 10.4 SECONDS (9.4-12.5) 06/07/17 10:28 INR 0.95 (0.93-1.08) 06/07/17 10:28 Sodium 141 mmol/L (132-148) 06/09/17 06:30 Potassium 3.9 mmol/L (3.6-5.0) 06/09/17 06:30 Chloride 112 mmol/L (98-107) H 06/09/17 06:30 Carbon Dioxide 19 mmol/L (21-33) L 06/09/17 06:30 Anion Gap 14 (10-20) 06/09/17 06:30 BUN 23 mg/dL (7-21) H 06/09/17 06:30 Creatinine 0.9 mg/dl (0.7-1.2) 06/09/17 06:30 Est GFR ( Amer) > 60 06/09/17 06:30 Est GFR (Non-Af Amer) > 60 06/09/17 06:30 POC Glucose (mg/dL) 102 mg/dL (65-110) 06/07/17 10:51 Random Glucose 104 mg/dL (70-110) 06/09/17 06:30 Calcium 8.5 mg/dL (8.4-10.5) 06/09/17 06:30 Total Bilirubin 0.4 mg/dL (0.2-1.3) 06/09/17 06:30 AST 43 U/L (14-36) H D 06/09/17 06:30 ALT 34 U/L (7-56) 06/09/17 06:30 Alkaline Phosphatase 74 U/L (38-126) 06/09/17 06:30 Total Protein 6.6 g/dL (5.8-8.3) 06/09/17 06:30 Albumin 3.5 g/dL (3.0-4.8) 06/09/17 06:30 Globulin 3.1 gm/dL 06/09/17 06:30 Albumin/Globulin Ratio 1.1 (1.1-1.8) 06/09/17 06:30 Triglycerides 197 mg/dL (35-160) H 06/07/17 12:38 Cholesterol 244 mg/dL (130-200) H 06/07/17 12:38 LDL Cholesterol Direct 153 mg/dL (0-129) H 06/07/17 12:38 HDL Cholesterol 50 mg/dL (29-60) 06/07/17 12:38 Urine Color Yellow (YELLOW) 06/07/17 20:59 Urine Appearance Slight-cloudy (CLEAR) 06/07/17 20:59 Urine pH 6.0 (4.7-8.0) 06/07/17 20:59 Ur Specific [place] 1.025 (1.005-1.035) 06/07/17 20:59 Urine Protein 30 mg/dL (<30 mg/dL) H 06/07/17 20:59 Urine Glucose (UA) Negative mg/dL (NEGATIVE) 06/07/17 20:59 Urine Ketones Negative mg/dL (NEGATIVE) 06/07/17 20:59 Urine Blood Large (NEGATIVE) H 06/07/17 20:59 Urine Nitrate Negative (NEGATIVE) 06/07/17 20:59 Urine Bilirubin Negative (NEGATIVE) 06/07/17 20:59 Urine Urobilinogen 0.2 E.U./dL (<1 E.U./dL) 06/07/17 20:59 Ur Leukocyte Esterase Negative Chanell/uL (NEGATIVE) 06/07/17 20:59 Urine RBC 15 - 20 /hpf (0-2) 06/07/17 20:59 Urine WBC 1 - 3 /hpf (0-6) 06/07/17 20:59 Ur Epithelial Cells 1 - 3 /hpf (0-5) 06/07/17 20:59 Amorphous Sediment Few 06/07/17 11:29 Urine Bacteria Many (NEG) 06/07/17 11:29 Hyaline Casts 0 - 2 /hpf 06/07/17 20:59 Fine Granular Casts 0 - 2 /hpf (0-2) 06/07/17 11:29 Coarse Granular Casts Trace /hpf (0-2) H 06/07/17 11:29 Stool Leukocytes, Qual Positive (NEGATIVE) H 06/07/17 20:59 - Hospital Course Hospital Course: 52 years old female with hx of HTN and HLD, presents for transient dysarthria and lower extremity weakness x 1-2 minutes. Pt states that she woke up the morning prior to arrival, with nausea and vomiting, 3-4 episodes, nonbilious and nonbloody, yellow food. She then started having mid abdominal pain and having yellow, nonbloody diarrheal episodes, 7 since morning. Pt denies unusual food, sick contacts, recent travel, recent antibiotic/steroid use. Denies dyspepsia, bloating, hematemesis, hematochezia, melena, rectal pain. Pt also states that in the afternoon, she started feeling a "purple tongue," with speech difficulty and bilateral lower extremity weakness, which lasted 1-2 minutes, with full resolution after the episode. Denies postictal confusion, LOC , syncope, convulsions, tongue biting, urinary/bladder incontinence, history of seizures/prior episodes. In ED, pt afebrile, with leukocytosis 18.7, mildly elevated AST 60, ALT 41, UA shows many bacteria with negative urine culture. Pt has no neurological deficits throughout hospital course. Denies sob, cp, cough, chest congestion, dysuria, hematuria, leg swelling. C. difficle negative, CXR negative for any focal consolidations. Echocardiogram showed normal EF and no valvular abnormalities. Carotid US showed showed 20-39% bilateral proximal ICA stenosis. CT abd pelvis showed no colitis/obstruction, left ovarian cyst measuring 3.3 cm. Previous pelvic US in 2016 showed left ovarian cyst measuring 2.1x1.2x1.6 cm. Pt advised to follow up outpatient office support assistant (to which patient agrees). She has a office support assistant at [facility], however, does not remember her name. Ct head and brain mri showed no acute changes, patient given ASA 325 mg on arrival. Patient's triglycerides and LDL were elevated, and lipitor was added in addition to her home Lopid. Patient's diarrhea, nausea, vomiting resolved. Patient tolerating regular diet well. Spoke with patient and her friend, Mendoza Carrillo who will be picking her up from the hospital. Discussed and seen with Dr Mi. Vandana Jose, PGY1 Discharge Exam - Head Exam Head Exam: ATRAUMATIC, NORMOCEPHALIC - Additional Findings Additional findings: - Constitutional Appears: Non-toxic, No Acute Distress, Older Than Stated Age - Head Exam Head Exam: ATRAUMATIC, NORMOCEPHALIC - Eye Exam Eye Exam: EOMI, PERRL Pupil Exam: PERRL - ENT Exam ENT Exam: Mucous Membranes Moist - Neck Exam Neck Exam: Full ROM - Respiratory Exam Respiratory Exam: Clear to Ausculation Bilateral. absent: Accessory Muscle Use , Chest Wall Tenderness, Respiratory Distress - Cardiovascular Exam Cardiovascular Exam: RRR, +S1, +S2. absent: Irregular Rhythm - GI/Abdominal Exam GI & Abdominal Exam: Soft, Normal Bowel Sounds. absent: Distended, Guarding, Tenderness, Mass, Organomegaly, Rebound - Extremities Exam Extremities Exam: absent: Calf Tenderness, Pedal Edema - Back Exam Back Exam: NORMAL INSPECTION - Neurological Exam Neurological Exam: Alert, Awake, CN II-XII Intact, Oriented x3. absent: Motor Sensory Deficit - Psychiatric Exam Psychiatric exam: Normal Affect, Normal Mood - Skin Skin Exam: Dry, Normal Color, Warm Discharge Plan - Discharge Medications Prescriptions: Aspirin [Aspirin Chewable] 81 mg PO DAILY #30 chew Atorvastatin [Lipitor] 40 mg PO DIN 30 Days tab - Follow Up Plan Condition: GOOD Disposition: HOME/ ROUTINE Patient education suggested?: Yes Instructions: Transient Ischemic Attack (DC), Gastroenteritis (DC) Additional Instructions: - Notified friend Mendoza Carrillo to pick the patient from the hospital. He agrees to it. - Please follow up with your PMD Dr Izaguirre in 1 week. - You were found to have left ovarian cyst 3.[address] abd pelvis. In 2016 pelvic US, the left ovarian cyst was seen at 2.2 cm. Please follow up with your Word Processing Specialist at [facility] in 1 week. - Since you were diagnosed with a TIA, you were started on baby aspirin and lipitor (your LDL was 153). Please cont to take these at home (you are given a prescription for a 30 day supply). - Please return to the hospital if any concerns. Referrals: Chantale Izaguirre APN-C [Primary Care Provider] - <Desean Mi - Last Filed: 06/09/17 17:02> Provider - Provider Date of Admission: 06/07/17 11:30 Attending physician: Desean Mi MD Primary care physician: Chantale [facility]agu[facility] Course - Lab Results Lab Results: Micro Results 06/07/17 14:00 Blood Blood Culture - Preliminary NO GROWTH AFTER 48 HOURS 06/07/17 20:59 Urine,Random Urine Culture - Final No Growth (<1,000 CFU/ML) 06/07/17 20:59 Stool C. difficile Antigen & Toxin A,B (M - Final Most Recent Lab Values WBC 7.2 10^3/ul (4.5-11.0) 06/09/17 06:30 RBC 3.66 10^6/uL (3.5-6.1) 06/09/17 06:30 Hgb 10.0 g/dL (12.0-16.0) L 06/09/17 06:30 Hct 31.1 % (36.0-48.0) L 06/09/17 06:30 MCV 85.0 fl (80.0-105.0) 06/09/17 06:30 MCH 27.3 pg (25.0-35.0) 06/09/17 06:30 MCHC 32.2 g/dl (31.0-37.0) 06/09/17 06:30 RDW 14.0 % (11.5-14.5) 06/09/17 06:30 Plt Count 283 10^3/uL (120.0-450.0) 06/09/17 06:30 MPV 9.7 fl (7.0-11.0) 06/09/17 06:30 Gran % 50.2 % (50.0-68.0) 06/09/17 06:30 Lymph % (Auto) 35.1 % (22.0-35.0) H 06/09/17 06:30 Lyman % (Auto) 6.8 % (1.0-6.0) H 06/09/17 06:30 Eos % (Auto) 7.6 % (1.5-5.0) H 06/09/17 06:30 Baso % (Auto) 0.3 % (0.0-3.0) 06/09/17 06:30 Gran # 3.63 (1.4-6.5) 06/09/17 06:30 Lymph # 2.5 (1.2-3.4) 06/09/17 06:30 Lyman # 0.5 (0.1-0.6) 06/09/17 06:30 Eos # 0.6 (0.0-0.7) 06/09/17 06:30 Baso # 0.02 K/mm3 (0.0-2.0) 06/09/17 06:30 PT 10.4 SECONDS (9.4-12.5) 06/07/17 10:28 INR 0.95 (0.93-1.08) 06/07/17 10:28 Sodium 141 mmol/L (132-148) 06/09/17 06:30 Potassium 3.9 mmol/L (3.6-5.0) 06/09/17 06:30 Chloride 112 mmol/L (98-107) H 06/09/17 06:30 Carbon Dioxide 19 mmol/L (21-33) L 06/09/17 06:30 Anion Gap 14 (10-20) 06/09/17 06:30 BUN 23 mg/dL (7-21) H 06/09/17 06:30 Creatinine 0.9 mg/dl (0.7-1.2) 06/09/17 06:30 Est GFR ( Amer) > 60 06/09/17 06:30 Est GFR (Non-Af Amer) > 60 06/09/17 06:30 POC Glucose (mg/dL) 102 mg/dL (65-110) 06/07/17 10:51 Random Glucose 104 mg/dL (70-110) 06/09/17 06:30 Calcium 8.5 mg/dL (8.4-10.5) 06/09/17 06:30 Total Bilirubin 0.4 mg/dL (0.2-1.3) 06/09/17 06:30 AST 43 U/L (14-36) H D 06/09/17 06:30 ALT 34 U/L (7-56) 06/09/17 06:30 Alkaline Phosphatase 74 U/L (38-126) 06/09/17 06:30 Total Protein 6.6 g/dL (5.8-8.3) 06/09/17 06:30 Albumin 3.5 g/dL (3.0-4.8) 06/09/17 06:30 Globulin 3.1 gm/dL 06/09/17 06:30 Albumin/Globulin Ratio 1.1 (1.1-1.8) 06/09/17 06:30 Triglycerides 197 mg/dL (35-160) H 06/07/17 12:38 Cholesterol 244 mg/dL (130-200) H 06/07/17 12:38 LDL Cholesterol Direct 153 mg/dL (0-129) H 06/07/17 12:38 HDL Cholesterol 50 mg/dL (29-60) 06/07/17 12:38 Urine Color Yellow (YELLOW) 06/07/17 20:59 Urine Appearance Slight-cloudy (CLEAR) 06/07/17 20:59 Urine pH 6.0 (4.7-8.0) 06/07/17 20:59 Ur Specific [place] 1.025 (1.005-1.035) 06/07/17 20:59 Urine Protein 30 mg/dL (<30 mg/dL) H 06/07/17 20:59 Urine Glucose (UA) Negative mg/dL (NEGATIVE) 06/07/17 20:59 Urine Ketones Negative mg/dL (NEGATIVE) 06/07/17 20:59 Urine Blood Large (NEGATIVE) H 06/07/17 20:59 Urine Nitrate Negative (NEGATIVE) 06/07/17 20:59 Urine Bilirubin Negative (NEGATIVE) 06/07/17 20:59 Urine Urobilinogen 0.2 E.U./dL (<1 E.U./dL) 06/07/17 20:59 Ur Leukocyte Esterase Negative Chanell/uL (NEGATIVE) 06/07/17 20:59 Urine RBC 15 - 20 /hpf (0-2) 06/07/17 20:59 Urine WBC 1 - 3 /hpf (0-6) 06/07/17 20:59 Ur Epithelial Cells 1 - 3 /hpf (0-5) 06/07/17 20:59 Amorphous Sediment Few 06/07/17 11:29 Urine Bacteria Many (NEG) 06/07/17 11:29 Hyaline Casts 0 - 2 /hpf 06/07/17 20:59 Fine Granular Casts 0 - 2 /hpf (0-2) 06/07/17 11:29 Coarse Granular Casts Trace /hpf (0-2) H 06/07/17 11:29 Stool Leukocytes, Qual Positive (NEGATIVE) H 06/07/17 20:59 Attending/Attestation - Attestation I have personally seen and examined this patient.: Yes I have fully participated in the care of the patient.: Yes I have reviewed all pertinent clinical information, including history, physical exam and plan: Yes Notes (Text): 06/09/17 17:00 52 year old female with past medical history of hypertension and dyslipidemia presented with transient LE weakness and dysarthria. CT head was negative for acute findings. MRI brain showed no acute intracranial hemorrhage or infarct; possible minimal chronic sequela of small vessel disease was seen. Her echocardiogram and carotid dopplers were reviewed. She was seen and evaluated by neurology and PT. She is on aspirin and statin. Her symptoms have resolved. She also initially complained of abdominal pain with nausea, vomiting and diarrhea likely secondary to acute gastroenteritis. CT abd/pelvis reviewed as above. Recommended outpatient gynecology follow up. She initially had leukocytosis likely reactive secondary to above which has resolved. Overall her symptoms have improved. She is discharged home to follow up with her pmd. Recommended outpatient gynecology follow up. Desean Mi MD Hospitalist.
== END 2017-06-09 12:37 | disposition home or self-care (01) | DRG 832 ==
LOC: ED 09:11 → ERH 11:30 → 3RNO 12:34
PROVIDERS: ADMIT Internal Medicine; ATTEND Internal Medicine
DX: G45.9 Transient cerebral ischemic attack, unspecified (principal); I65.23 Occlusion and stenosis of bilateral carotid arteries; E78.5 Hyperlipidemia, unspecified; K52.9 Noninfective gastroenteritis and colitis, unspecified; I10 Essential (primary) hypertension; K80.20 Calculus of gallbladder without cholecystitis without obstruction; N83.201 Unspecified ovarian cyst, right side; Z79.82 Long term (current) use of aspirin; Z79.899 Other long term (current) drug therapy

== ENCOUNTER 2017-09-07 15:55 | Emergency (ER) | payer OTHER ==
[2017-09-07 15:56] VITALS: BMI 24.2
[2017-09-07 16:21] VITALS: TEMP 98.1
--- NOTE | 2017-09-07 16:23 | ED PDOC ---
Arrival/HPI - General Chief Complaint: Upper Extremity Problem/Injury Time Seen by Provider: 09/07/17 16:03 Historian: Patient - History of Present Illness Narrative History of Present Illness (Text): 09/07/17 16:17 Patient is a 52 year old female, whose past medical history includes hypertension, hyperlipidemia and TIA, presents to the Emergency department complaining of left sided discomfort since Sunday. Patient informs discomfort emerging from left side of neck radiating down to her left shoulder, left arm and left upper-mid ribs. Initially it started only in the neck and then it worsening and progressed as stated. Patient informs worsening pain with deep respiration, movement and palpation. She denies any trauma. Patient denies any chest pain, shortness of breath, abdominal pain, fever, chills, nausea, vomiting, diarrhea, cough, body aches or any other complaints. PMD: Dr. William Izaguirre Time/Duration: < week Symptom Onset: Gradual Symptom Course: Worsening Quality: Aching Activities at Onset: Light Context: Home Past Medical History - Provider Review Nursing Documentation Reviewed: Yes - Infectious Disease Hx of Infectious Diseases: None - Tetanus Immunization Tetanus Immunization: Unknown - Reproductive Menopause: Yes - Past Medical History Past Medical History: No Previous - Cardiac Hx Cardiac Disorders: Yes Hx Hypertension: Yes - Pulmonary Hx Respiratory Disorders: No - Neurological Hx Neurological Disorder: No - HEENT Hx HEENT Disorder: No - Endocrine/Metabolic Hx Endocrine Disorders: No - Hematological/Oncological Hx Blood Disorders: No - Integumentary Hx Dermatological Disorder: No - Musculoskeletal/Rheumatological Hx Falls: No - Gastrointestinal Hx Gastrointestinal Disorders: No - Genitourinary/Gynecological Hx Genitourinary Disorders: No - Psychiatric Hx Psychophysiologic Disorder: No Hx Substance Use: No - Past Surgical History Past Surgical History: No Previous - Anesthesia Hx Anesthesia: No Hx Anesthesia Reactions: No Hx Malignant Hyperthermia: No - Suicidal Assessment Feels Threatened In Home Enviroment: No Family/Social History - Physician Review Nursing Documentation Reviewed: Yes Family/Social History: No Known Family HX Smoking Status: Never Smoked Hx Alcohol Use: No Hx Substance Use: No Hx Substance Use Treatment: No Allergies/Home Meds Allergies/Adverse Reactions: Allergies No Known Allergies Allergy (Verified 09/07/17 16:00) Home Medications: Home Meds Medication Instructions Recorded Confirmed Gemfibrozil [Lopid] 600 mg PO BID 06/07/17 09/07/17 Losartan Potassium 100 mg PO DAILY 06/07/17 09/07/17 amLODIPine [Norvasc] 10 mg PO DAILY 06/07/17 09/07/17 hydroCHLOROthiazide [Hydrodiuril] 25 mg PO DAILY 06/07/17 09/07/17 Review of Systems - Physician Review All systems were reviewed & negative as marked: Yes - Review of Systems Constitutional: Normal. absent: Fevers Eyes: Normal ENT: Normal Respiratory: Normal. absent: SOB, Cough Cardiovascular: Other (left sided upper/mid chest wall discomfort) Gastrointestinal: Normal. absent: Abdominal Pain, Diarrhea, Nausea, Vomiting Genitourinary Female: Normal Musculoskeletal: Neck Pain, Other (left sided arm and shoulder discomfort). absent: Myalgias Skin: Normal Neurological: Normal Endocrine: Normal Hemo/Lymphatic: Normal Psychiatric: Normal Physical Exam Vital Signs Reviewed: Yes Vital Signs Temp Pulse Resp BP Pulse Ox 09/07/17 15:57 98.1 F 91 H 18 116/74 98 Temperature: Afebrile Blood Pressure: Normal Pulse: Regular Respiratory Rate: Normal Appearance: Positive for: Well-Appearing, Non-Toxic, Comfortable Pain Distress: None Mental Status: Positive for: Alert and Oriented X 3 - Systems Exam Head: Present: Atraumatic, Normocephalic Pupils: Present: PERRL Extroacular Muscles: Present: EOMI Conjunctiva: Present: Normal Mouth: Present: Moist Mucous Membranes Neck: Present: Normal Range of Motion, Other (left sided neck tenderness ) Respiratory/Chest: Present: Clear to Auscultation, Good Air Exchange. No: Respiratory Distress, Accessory Muscle Use Cardiovascular: Present: Regular Rate and Rhythm, Normal S1, S2, Other (left sided rib tenderness). No: Murmurs Abdomen: Present: Normal Bowel Sounds. No: Tenderness, Distention, Peritoneal Signs Back: Present: Normal Inspection Upper Extremity: Present: Tenderness (left sided shoulder and arm tenderness). No: Cyanosis, Edema Lower Extremity: Present: Normal Inspection. No: Edema Neurological: Present: GCS=15, CN II-XII Intact, Speech Normal Skin: Present: Warm, Dry, Normal Color. No: Rashes Psychiatric: Present: Alert, Oriented x 3, Normal Insight, Normal Concentration Medical Decision Making ED Course and Treatment: 09/07/17 16:26 Impression: 52 year old female presents to the Emergency department for left sided neck, shoulder, arm and rib discomfort. Differential Diagnosis included but are not limited to: Musculoskeletal vs neuropathy vs. cardiac Plan: -- EKG -- Labs -- Toradol -- Flexeril -- X-ray of ribs -- Reassess and disposition Progress Notes: 09/07/17 16:34 EKG: Ordered, reviewed, and independently interpreted the EKG. Rate : 80 BPM Rhythm : NSR Interpretation : No ST-segment elevations or depressions, no T-wave inversions, normal intervals. 09/07/17 17:44 Patient states that the symptoms have improved but she still has some pain when she takes a deep breathe. D-dimer positive. CTAngio Chest ordered to r/o PE. Case signed out to Dr. Bustos to f/u CT, Xray, reevaluate and disposition. - Lab Interpretations Lab Results: 09/07/17 16:42 09/07/17 16:42 Lab Results 09/07/17 16:42: Sodium 144, Potassium 4.5, Chloride 108 H, Carbon Dioxide 25, Anion Gap 16, BUN 30 H, Creatinine 1.1, Est GFR ( Amer) > 60, Est GFR ( Non-Af Amer) 53, Random Glucose 175 H, Calcium 9.6, Magnesium 1.9, Total Bilirubin 0.3, AST 38 H, ALT 31, Alkaline Phosphatase 75, Lactate Dehydrogenase 391, Total Creatine Kinase 56, Troponin I < 0.01, Total Protein 7.6, Albumin 4.2 , Globulin 3.5, Albumin/Globulin Ratio 1.2 09/07/17 16:42: PT 11.3, INR 0.99, APTT 33.8, D-Dimer, Quantitative 292 H 09/07/17 16:42: WBC 9.1 D, RBC 4.09, Hgb 11.2 L, Hct 34.3 L, MCV 83.9, MCH 27.4 , MCHC 32.7, RDW 13.8, Plt Count 344, MPV 9.3, Gran % 68.0, Lymph % (Auto) 23.4 , [place] % (Auto) 3.7, Eos % (Auto) 4.7, Baso % (Auto) 0.2, Gran # 6.20, Lymph # ( Auto) 2.1, [place] # (Auto) 0.3, Eos # (Auto) 0.4, Baso # (Auto) 0.02 - RAD Interpretation Radiology Orders: 09/07/17 16:17 RIBS LEFT & PA CHEST [RAD] Stat 09/07/17 17:17 ANGIO CHEST PE PROTOCOL [CT] Stat - EKG Interpretation Interpreted by ED Physician: Yes Type: 12 lead EKG - Medication Orders Current Medication Orders: Sodium Chloride (Sodium Chloride 0.9%) 1,000 mls @ 999 mls/hr IV .Q1H1M STA Stop: 09/07/17 18:11 Last Admin: 09/07/17 17:14 Dose: 999 mls/hr eMAR Start Stop Document 09/07/17 17:14 OCS (Rec: 09/07/17 17:14 OCS [id number]) Intravenous Solution Start Date 09/07/17 Start Time 17:14 End Date 09/07/17 End time 18:15 Total Infusion Time 61 Discontinued Medications Cyclobenzaprine HCl (Flexeril) 5 mg PO STAT STA Stop: 09/07/17 16:17 Last Admin: 09/07/17 16:33 Dose: 5 mg Ketorolac Tromethamine (Toradol) 30 mg IVP STAT STA Stop: 09/07/17 16:17 Last Admin: 09/07/17 16:33 Dose: 30 mg MAR Pain Assessment Document 09/07/17 16:33 OCS (Rec: 09/07/17 16:34 [id number] [id number]) Pain Reassessment Is this a pain reassessment? Yes Sleep Is patient sleeping during reassessment? No Presence of Pain Presence of Pain Yes Pain Scale Used Pain Scale Used Numeric Location Pain Location Body Site Neck Description Description Constant Aggravating Factors ADL's IVP Administration Document 09/07/17 16:33 OCS (Rec: 09/07/17 16:34 OCS [id number]) Charges for Administration # of IVP Administrations 1 - Scribe Statement The provider has reviewed the documentation as recorded by the Joeibmason Hansen. All medical record entries made by the Joeibmason were at my direction and personally dictated by me. I have reviewed the chart and agree that the record accurately reflects my personal performance of the history, physical exam, medical decision making, and the department course for this patient. I have also personally directed, reviewed, and agree with the discharge instructions and disposition. Disposition/Present on Arrival - Present on Arrival Any Indicators Present on Arrival: No History of DVT/PE: No History of Uncontrolled Diabetes: No Urinary Catheter: No History of Decub. Ulcer: No History Surgical Site Infection Following: None - Disposition Have Diagnosis and Disposition been Completed?: No Diagnosis: Neck pain, Rib pain on left side Disposition Time: 17:45 Condition: FAIR Discharge Instructions (ExitCare): Chest Pain (ED) Referrals: Chantale Izaguirre APN-C [Primary Care Provider] - Follow up with primary Forms: [employer] ([place]uan)
[2017-09-07 17:02] LABS: BASO # 0.02 K/mm3 (0.0-2.0); BASO % 0.2 % (0.0-3.0); EOS # 0.4 (0.0-0.7); EOS % 4.7 % (1.5-5.0); GRAN # 6.2 (1.4-6.5); HEMOGLOBIN 11.2 g/dL (12.0-16.0); LYMPH # 2.1 (1.2-3.4); LYMPH % 23.4 % (22.0-35.0); MEAN CELL VOLUME 83.9 fl (80.0-105.0); MEAN CORPUSCULAR HEMOGLOBIN 27.4 pg (25.0-35.0); MEAN CORPUSCULAR HGB CONC 32.7 g/dl (31.0-37.0); MEAN PLATELET VOLUME 9.3 fl (7.0-11.0); MONO # 0.3 (0.1-0.6); MONO % 3.7 % (1.0-6.0); RBC 4.09 10^6/uL (3.5-6.1); RED CELL DISTRIBUTION WIDTH 13.8 % (11.5-14.5); WHITE BLOOD COUNT 9.1 10^3/ul (4.5-11.0)
[2017-09-07 17:09] LABS: ALBUMIN 4.2 g/dL (3.0-4.8); BLOOD UREA NITROGEN 30 mg/dL (7-21); CALCIUM 9.6 mg/dL (8.4-10.5); GFR AFRICAN-AMERICAN > 60; GFR NON-AFRICAN AMERICAN 53
[2017-09-07 17:10] LABS: ALB/GLOB RATIO 1.2 (1.1-1.8); ALT/SGPT 31 U/L (7-56); AST/SGOT 38 U/L (14-36)
[2017-09-07] MEDS ORDERED: Sodium Chloride 0.9% 1,000 ML IV STA (17:11)
[2017-09-07 17:12] LABS: INR 0.99 (0.93-1.08); PARTIAL THROMBOPLASTIN TIME 33.8 Seconds (25.1-36.5); PROTHROMBIN TIME 11.3 SECONDS (9.4-12.5)
[2017-09-07 17:20] LABS: TROPONIN I < 0.01 ng/mL
[2017-09-07] MEDS ORDERED: Iohexol 350 MG/100 ML VIAL ONE (17:24)
[2017-09-07 17:48] VITALS: O2SAT 99
--- NOTE | 2017-09-07 17:49 | ED PDOC ---
Physical Exam - Physical Exam Narrative Physical Exam (Text): 09/07/17 17:48 Case endorsed to me by Dr. Torres for pending CT of chest, Chest X-ray, re- evaluation and disposition. Patient is a 52 year old female, who presents to the Emergency department for left-sided neck, shoulder and rib discomfort since Sunday. Patient informs improvement of symptoms and currently denies any new complaints. Vital Signs Reviewed: Yes Vital Signs Temp Pulse Resp BP Pulse Ox 09/07/17 17:47 89 20 122/67 99 09/07/17 15:57 98.1 F 91 H 18 116/74 98 Temperature: Afebrile Blood Pressure: Normal Pulse: Regular Respiratory Rate: Normal Appearance: Positive for: Well-Appearing, Non-Toxic, Uncomfortable, Other ( resting in bed, alert/awake, GCS = 15, oriented x 3, mild distress due to pain; cooperative) Pain Distress: Mild Mental Status: Positive for: Alert and Oriented X 3 - Systems Exam Head: Present: Atraumatic, Normocephalic Pupils: Present: PERRL Extroacular Muscles: Present: EOMI Conjunctiva: Present: Normal Ears: Present: Normal Mouth: Present: Moist Mucous Membranes Pharnyx: Present: Normal Nose (External): Present: Atraumatic Nose (Internal): Present: Normal Inspection Neck: Present: Other (left sided neck tenderness) Respiratory/Chest: Present: Clear to Auscultation, Good Air Exchange, Other (+ left chest wall tenderness, no crepitus/lesions noted). No: Respiratory Distress, Accessory Muscle Use Cardiovascular: Present: Regular Rate and Rhythm, Normal S1, S2, Other (left sided rib tenderness). No: Murmurs Abdomen: Present: Normal Bowel Sounds, Other (well nourished female, no focal tenderness). No: Tenderness, Distention, Peritoneal Signs Back: Present: Normal Inspection. No: CVA Tenderness, Midline Tenderness Upper Extremity: Present: NORMAL PULSES, Tenderness (left sided arm+shoulder tendernes), Neurovascularly Intact. No: Cyanosis, Edema Lower Extremity: Present: Normal Inspection. No: Edema Neurological: Present: GCS=15, CN II-XII Intact, Speech Normal Skin: Present: Warm, Dry, Normal Color. No: Rashes Psychiatric: Present: Alert, Oriented x 3, Normal Insight, Normal Concentration Medical Decision Making ED Course and Treatment: 09/07/17 17:54 Impression: 52 year old female presents to the Emergency department for left- sided discomfort. Case endorsed to me by Dr. Torres. Plan: awaiting -- Chest X-ray -- CT Angio chest -- Reassess and disposition Progress Notes: 09/07/17 17:54 Patient endorsed to me by Dr. Torres. Pending Chest X-ray and CT angio of chest. Disposition pending. 09/07/17 19:23 pt with low risk for ACS due to current pain + reproducibility; + movement causing pain pt is made aware of her medical results pt is encouraged decr repetitive movements pt is encouraged outpt f/u pt will be discharged home Re-evaluation Time: 19:18 Reassessment Condition: Improving,but remains with symptoms - Lab Interpretations Lab Results: 09/07/17 16:42 09/07/17 16:42 Lab Results 09/07/17 16:42: Sodium 144, Potassium 4.5, Chloride 108 H, Carbon Dioxide 25, Anion Gap 16, BUN 30 H, Creatinine 1.1, Est GFR ( Amer) > 60, Est GFR ( Non-Af Amer) 53, Random Glucose 175 H, Calcium 9.6, Magnesium 1.9, Total Bilirubin 0.3, AST 38 H, ALT 31, Alkaline Phosphatase 75, Lactate Dehydrogenase 391, Total Creatine Kinase 56, Troponin I < 0.01, Total Protein 7.6, Albumin 4.2 , Globulin 3.5, Albumin/Globulin Ratio 1.2 09/07/17 16:42: PT 11.3, INR 0.99, APTT 33.8, D-Dimer, Quantitative 292 H 09/07/17 16:42: WBC 9.1 D, RBC 4.09, Hgb 11.2 L, Hct 34.3 L, MCV 83.9, MCH 27.4 , MCHC 32.7, RDW 13.8, Plt Count 344, MPV 9.3, Gran % 68.0, Lymph % (Auto) 23.4 , [place] % (Auto) 3.7, Eos % (Auto) 4.7, Baso % (Auto) 0.2, Gran # 6.20, Lymph # ( Auto) 2.1, [place] # (Auto) 0.3, Eos # (Auto) 0.4, Baso # (Auto) 0.02 I have reviewed the lab results: Yes Interpretation: Abnormal lab values (slightly elevated d-dimer) - RAD Interpretation Narrative RAD Interpretations (Text): 09/07/17 18:58 Chest X-ray reviewed, shows no pneumothorax. No acute rib fracture visible. 09/07/17 18:58 CT of Chest reviewed by radiologist, shows: Unremarkable CT pulmonary angiogram. No pulmonary embolus. No acute cardiopulmonary findings other than bibasilar dependent atelectasis appreciated. No significant lymphadenopathy in the chest. Cholelithiasis incidentally noted. 2.7 cm stable lucent left paraspinal lesion likely reflecting a benign process such is nerve sheath tumor, lymphangioma or possibly neurenteric cyst. Tiny nodule left lobe thyroid gland. Radiology Orders: 09/07/17 16:17 RIBS LEFT & PA CHEST [RAD] Stat 09/07/17 17:17 ANGIO CHEST PE PROTOCOL [CT] Stat Roll Weigher: ED Physician, Radiologist - EKG Interpretation EKG Interpretation (Text): 09/07/17 19:19 NSR at 90 bpm, normal axis, no ectopy, inverted T in leads V2, no st changes, borderline EKG; no gross changes compare with old ekg 05/2017 Interpreted by ED Physician: Yes Type: 12 lead EKG Comparison: Similar to previous EKG - Medication Orders Current Medication Orders: Discontinued Medications Cyclobenzaprine HCl (Flexeril) 5 mg PO STAT STA Stop: 09/07/17 16:17 Last Admin: 09/07/17 16:33 Dose: 5 mg Sodium Chloride (Sodium Chloride 0.9%) 1,000 mls @ 999 mls/hr IV .Q1H1M STA Stop: 09/07/17 18:11 Last Admin: 09/07/17 17:14 Dose: 999 mls/hr eMAR Start Stop Document 09/07/17 17:14 OCS (Rec: 09/07/17 17:14 OCS [id number]) Intravenous Solution Start Date 09/07/17 Start Time 17:14 End Date 09/07/17 End time 18:15 Total Infusion Time 61 Ketorolac Tromethamine (Toradol) 30 mg IVP STAT STA Stop: 09/07/17 16:17 Last Admin: 09/07/17 16:33 Dose: 30 mg MAR Pain Assessment Document 09/07/17 16:33 OCS (Rec: 09/07/17 16:34 OCS [id number]) Pain Reassessment Is this a pain reassessment? Yes Sleep Is patient sleeping during reassessment? No Presence of Pain Presence of Pain Yes Pain Scale Used Pain Scale Used Numeric Location Pain Location Body Site Neck Description Description Constant Aggravating Factors ADL's IVP Administration Document 09/07/17 16:33 OCS (Rec: 09/07/17 16:34 OCS [id number]) Charges for Administration # of IVP Administrations 1 - Scribe Statement The provider has reviewed the documentation as recorded by the Scribe Julius Hansen. All medical record entries made by the Scribe were at my direction and personally dictated by me. I have reviewed the chart and agree that the record accurately reflects my personal performance of the history, physical exam, medical decision making, and the department course for this patient. I have also personally directed, reviewed, and agree with the discharge instructions and disposition. Disposition/Present on Arrival - Present on Arrival Any Indicators Present on Arrival: No History of DVT/PE: No History of Uncontrolled Diabetes: No Urinary Catheter: No History of Decub. Ulcer: No History Surgical Site Infection Following: None - Disposition Have Diagnosis and Disposition been Completed?: Yes Diagnosis: Neck pain, Rib pain on left side, Atypical chest pain, Benign paraspinal mass, Gallstone Disposition: HOME/ ROUTINE Disposition Time: 19:12 Patient Plan: Discharge Patient Problems: Current Active Problems Problem Status Onset Atypical chest pain Acute Neck pain Acute Rib pain on left side Acute Condition: STABLE Discharge Instructions (ExitCare): Pleuritic Chest Pain, Costochondritis, Neck Pain, Chest Pain (ED) Print Language: GERMAN Additional Instructions: Make sure to see your doctor in 1-2 days DRINK PLENTY OF FLUIDS take your medications as prescribed AVOID repetitive movements to decr left shoulder/chest region pain RETURN TO ED IF worse pain, cant breath, persistent vomiting, high fever >101- 102 for hours, altered behavior, unable to urinate, heavy/persistent bleeding, passing out, chest pain, or other medical emergencies Prescriptions: Diazepam [Valium] 2 mg PO TID PRN #12 tablet PRN Reason: Muscle Spasm Ibuprofen [Motrin] 400 mg PO QID PRN #20 tab PRN Reason: Pain, Mild (1-3) traMADol [Ultram] 50 mg PO BID PRN #12 tab PRN Reason: Pain, Moderate (4-7) Referrals: Chantale Izaguirre APN-[facility] [Primary Care Provider] - Follow up with primary Forms: [employer] (Jamaican), WORK NOTE
--- NOTE | 2017-09-07 18:55 | CT ---
PROCEDURE: CT Chest with contrast (Pulmonary Angiogram) HISTORY: chest pain r/o PE COMPARISON: Lung base sections from abdomen pelvis CT 10/21/2015 and 06/07/2017. TECHNIQUE: Axial computed tomography images were obtained of the chest in the pulmonary arterial phase of enhancement. Coronal and sagittal reformatted images were created and reviewed. Intravenous contrast dose: Omnipaque 350, 100 cc Radiation dose: Total exam DLP = 331.09 mGy-cm. This CT exam was performed using one or more of the following dose reduction techniques: Automated exposure control, adjustment of the mA and/or kV according to patient size, and/or use of iterative reconstruction technique. FINDINGS: PULMONARY ARTERIES: Unremarkable. No pulmonary embolism. AORTA: No acute findings. No thoracic aortic aneurysm. LUNGS: Bibasilar dependent atelectasis. No nodule, mass or pulmonary consolidation. PLEURAL SPACES: Unremarkable. No effusion or pneuomothorax. HEART: Unremarkable. No cardiomegaly. No significant pericardial effusion. LYMPH NODES: No lymphadenopathy. BONES, CHEST WALL: Unremarkable. No fracture or destructive lesion OTHER FINDINGS: Thoracic inlet is remarkable for a normal size apparent thyroid lobes with tiny sub cm nodule at the left. Further, inferior left paravertebral hypo dense lesion is again identified stable in size measuring 2.7 x 1.9 cm lateral to the T10 vertebral body potentially reflecting a nerve sheath tumor, lymphangioma or potentially a neurenteric cyst. IMPRESSION: Unremarkable CT pulmonary angiogram. No pulmonary embolus. No acute cardiopulmonary findings other than bibasilar dependent atelectasis appreciated. No significant lymphadenopathy in the chest. Cholelithiasis incidentally noted. 2.7 cm stable lucent left paraspinal lesion likely reflecting a benign process such is nerve sheath tumor, lymphangioma or possibly neurenteric cyst. Tiny nodule left lobe thyroid gland.
[2017-09-07 19:23] VITALS: BP 114/62; PULSE 81; RESP 18
--- NOTE | 2017-09-08 09:01 | RAD ---
PROCEDURE: Radiographs of the Chest and Left Ribs. HISTORY: left chest / rib pain COMPARISON: Portable chest 06/07/2017.. TECHNIQUE: Frontal radiograph of the chest and multiple oblique radiographs of the left ribs were obtained. FINDINGS: LEFT RIBS: No fracture or focal lesion visualized. LUNGS: Clear. PLEURA: No pneumothorax or pleural fluid. CARDIOVASCULAR: Normal sized heart. No pulmonary vascular congestion. OTHER FINDINGS: None. IMPRESSION: Unremarkable radiographs of the chest and left ribs. No left rib fracture.
--- NOTE | 2017-09-08 23:36 | CARD ---
APPROVED REPORT EKG Measurement Heart [id number] <Conclusion> Normal sinus rhythm Possible Left atrial enlargement Borderline ECG
== END 2017-09-07 19:24 | disposition home or self-care (01) ==
LOC: ED 15:55
DX: M54.2 Cervicalgia (principal); R07.9 Chest pain, unspecified; I10 Essential (primary) hypertension; E78.5 Hyperlipidemia, unspecified; Z86.73 Personal history of transient ischemic attack (TIA), and cerebral infarction without residual deficits
CPT/HCPCS: 71101; 71275; 80053; 82550; 83615; 83735; 84484; 85025; 85378; 85610; 85730; 93005; 96361; 96374; 99283; J1885; J7040; Q9967

== ENCOUNTER 2018-04-15 22:08 | Emergency (ER) | payer MEDICAID, OTHER ==
[2018-04-15 22:24] VITALS: BMI 23.8
[2018-04-15 22:55] VITALS: RESP 18; TEMP 98; O2SAT 98
[2018-04-15] MEDS ORDERED: Sodium Chloride 0.9% 1,000 ML IV STA (23:23)
--- NOTE | 2018-04-15 23:25 | ED PDOC ---
Arrival/HPI - General Chief Complaint: Female Genitourinary Time Seen by Provider: 04/15/18 22:14 Historian: Patient - History of Present Illness Narrative History of Present Illness (Text): 04/15/18 23:21 52 year old female, whose past medical history includes hypertension, hyperlipidemia and TIA, presents to the Emergency department complaining of lower abdominal pain and dysuria, for 1 day. Patient states her pain began ye sterday with burning urination. Patient informs of associated lower abdominal pain, that spreads to both flanks. Patient denies any fevers, chills, headache, dizziness, chest pain, shortness of breath, cough, nausea, vomiting, diarrhea, neck pain, hematuria, or any other complaint. Time/Duration: 24 hours Symptom Onset: Gradual Symptom Course: Unchanged Past Medical History - Provider Review Nursing Documentation Reviewed: Yes - Infectious Disease Hx of Infectious Diseases: None - Tetanus Immunization Tetanus Immunization: Unknown - Past Medical History Past Medical History: No Previous - Cardiac Hx Cardiac Disorders: Yes Hx Hypertension: Yes - Pulmonary Hx Respiratory Disorders: No - Neurological Hx Neurological Disorder: No - HEENT Hx HEENT Disorder: No - Endocrine/Metabolic Hx Endocrine Disorders: No - Hematological/Oncological Hx Blood Disorders: No - Integumentary Hx Dermatological Disorder: No - Musculoskeletal/Rheumatological Hx Musculoskeletal Disorders: No - Gastrointestinal Hx Gastrointestinal Disorders: No - Genitourinary/Gynecological Hx Genitourinary Disorders: No - Psychiatric Hx Psychophysiologic Disorder: No Hx Substance Use: No - Past Surgical History Past Surgical History: No Previous - Anesthesia Hx Anesthesia: No Hx Anesthesia Reactions: No Hx Malignant Hyperthermia: No - Suicidal Assessment Feels Threatened In Home Enviroment: No Family/Social History - Physician Review Nursing Documentation Reviewed: Yes Family/Social History: No Known Family HX Smoking Status: Never Smoked Hx Alcohol Use: No Hx Substance Use: No Hx Substance Use Treatment: No Allergies/Home Meds Allergies/Adverse Reactions: Allergies No Known Allergies Allergy (Verified 04/15/18 22:27) Home Medications: Home Meds Medication Instructions Recorded Confirmed Losartan Potassium 100 mg PO DAILY 06/07/17 04/15/18 amLODIPine [Norvasc] 5 mg PO DAILY 06/07/17 04/15/18 hydroCHLOROthiazide [Hydrodiuril] 25 mg PO DAILY 06/07/17 04/15/18 Review of Systems - Physician Review All systems were reviewed & negative as marked: Yes - Review of Systems Constitutional: absent: Fevers, Night Sweats Respiratory: absent: SOB, Cough Cardiovascular: absent: Chest Pain Gastrointestinal: Abdominal Pain (lower abdomen; flanks bilaterally). absent: Diarrhea, Nausea, Vomiting Genitourinary Female: Dysuria. absent: Hematuria, Other (hematuria) Musculoskeletal: absent: Neck Pain Neurological: absent: Headache, Dizziness Physical Exam Vital Signs Reviewed: Yes Vital Signs Temp Pulse Resp BP Pulse Ox 04/15/18 22:54 98.0 F 89 18 131/72 98 Temperature: Afebrile Blood Pressure: Normal Pulse: Regular Respiratory Rate: Normal Appearance: Positive for: Well-Appearing, Non-Toxic, Comfortable Pain Distress: None Mental Status: Positive for: Alert and Oriented X 3 - Systems Exam Head: Present: Atraumatic, Normocephalic Pupils: Present: PERRL Extroacular Muscles: Present: EOMI Conjunctiva: Present: Normal Mouth: Present: Moist Mucous Membranes Neck: Present: Normal Range of Motion Respiratory/Chest: Present: Clear to Auscultation, Good Air Exchange. No: Respiratory Distress, Accessory Muscle Use Cardiovascular: Present: Regular Rate and Rhythm, Normal S1, S2. No: Murmurs Abdomen: Present: Tenderness (suprapbic tenderness) Back: Present: CVA Tenderness Upper Extremity: Present: Normal Inspection. No: Cyanosis, Edema Lower Extremity: Present: Normal Inspection. No: Edema Neurological: Present: Speech Normal Skin: Present: Warm, Dry, Normal Color. No: Rashes Psychiatric: Present: Alert, Oriented x 3, Normal Insight, Normal Concentration Medical Decision Making ED Course and Treatment: 04/15/18 23:31 Impression: 52 year old female presents with lower abdominal pain and dysuria. Plan: -- CT Abdomen -- Labs -- Toradol -- Labs -- Urinalysis -- Reassess and disposition Prior Visits: Notes and results from previous visits were reviewed. Progress Notes: 04/16/18 01:08 Urine shows large esterase with blood. Will preemtively treat for UTI. Pending CT results - RAD Interpretation Narrative RAD Interpretations (Text): 04/16/18 02:19 CT of the abdomen and pelvis without contrast Clinical statement: Pain. Technique: Multiple axial CT images were obtained from the base of the lungs to the floor of the pelvis utilizing 5 mm axial slices without administration of contrast. Coronal and sagittal reconstructions were also obtained. Comparison: 06/07/2017. Findings: Chest: The visualized lung bases are clear. Abdomen: The kidneys are normal in size bilaterally. There is no evidence of hydronephrosis or nephrolithiasis. There is calcifications in the gallbladder wall. Dense material is again noted within the gallbladder lumen. There is no pericholecystic inflammatory changes. There is no evidence of biliary ductal dilatation. The liver, spleen, pancreas, and adrenal glands are unremarkable. The aorta demonstrates normal caliber and contour. There is no abdominal lymphadenopathy or ascites. Pelvis: Moderate amount of stool fills the colon. The bowel is otherwise unremarkable, with no obstructive or inflammatory changes. The appendix is normal. The urinary bladder is within normal limits. There is no pelvic lymphadenopathy or ascites. The other pelvic structures appear unremarkable. Bones: There are no suspicious osseous abnormalities seen. Impression: 1. No evidence of hydronephrosis or nephrolithiasis. 2. Diffuse circumferential calcifications the gallbladder wall, which is stable since the prior study. This could represent a porcelain gallbladder. Additionally, dense material within the gallbladder lumen is suspicious for gallstone filled gallbladder. No surrounding inflammatory changes are seen to suggest acute cholecystitis. There is no evidence of biliary ductal dilatation. If there is further clinical concern, ultrasound could be helpful for further evaluation. 3. Mild constipation. No obstructive or inflammatory bowel changes. Wood Technologist: Radiologist - Scribe Statement The provider has reviewed the documentation as recorded by the Johan Diaz Provider Scribe Attestation: All medical record entries made by the Joeibe were at my direction and personally dictated by me. I have reviewed the chart and agree that the record accurately reflects my personal performance of the history, physical exam, medical decision making, and the department course for this patient. I have also personally directed, reviewed, and agree with the discharge instructions and disposition. Disposition/Present on Arrival - Present on Arrival Any Indicators Present on Arrival: No History of DVT/PE: No History of Uncontrolled Diabetes: No Urinary Catheter: No History of Decub. Ulcer: No History Surgical Site Infection Following: None - Disposition Have Diagnosis and Disposition been Completed?: Yes Diagnosis: Cystitis Disposition Time: 02:24 Patient Plan: Discharge Condition: IMPROVED Discharge Instructions (ExitCare): Urinary Tract Infection, Adult (DC), Acute Cystitis (DC) Print Language: GEORGIAN Additional Instructions: All medical record entries made by the Scribe were at my direction and personally dictated by me. I have reviewed the chart and agree that the record accurately reflects my personal performance of the history, physical exam, medical decision making, and the department course for this patient. I have also personally directed, reviewed, and agree with the discharge instructions and disposition. Prescriptions: Cephalexin [cephalexin] 500 mg PO BID 5 Days #10 cap Referrals: Magdalene Issa MD [Primary Care Provider] - Follow up with primary [facility] [Outside] - Follow up with primary Forms: WORK NOTE, [employer] [facility] (Romanian)
[2018-04-15 23:45] LABS: URINE BILIRUBIN NEGATIVE (NEGATIVE); URINE BLOOD LARGE (NEGATIVE); URINE GLUCOSE (UA) NEGATIVE (NEGATIVE); URINE LEUKOCYTE ESTERASE LARGE Leu/uL (NEGATIVE); URINE PROTEIN 30 mg/dL (<30 mg/dL); URINE UROBILINOGEN 0.2 E.U./dL (<1 E.U./dL)
[2018-04-15 23:46] LABS: BASO # 0.03 K/mm3 (0.0-2.0); BASO % 0.3 % (0.0-3.0); EOS # 0.7 (0.0-0.7); EOS % 6.4 % (1.5-5.0); GRAN # 5.78 (1.4-6.5); GRAN % 53.5 % (50.0-68.0); HEMOGLOBIN 11.8 g/dL (12.0-16.0); LYMPH # 3.8 (1.2-3.4); LYMPH % 35.3 % (22.0-35.0); MEAN CELL VOLUME 81.4 fl (80.0-105.0); MEAN CORPUSCULAR HEMOGLOBIN 26.8 pg (25.0-35.0); MEAN PLATELET VOLUME 9.2 fl (7.0-11.0); MONO # 0.5 (0.1-0.6); MONO % 4.5 % (1.0-6.0); RBC 4.4 10^6/uL (3.5-6.1); RED CELL DISTRIBUTION WIDTH 13.9 % (11.5-14.5); WHITE BLOOD COUNT 10.8 10^3/uL (4.5-11.0)
[2018-04-15 23:49] LABS: URINE APPEARANCE CLOUDY (CLEAR); URINE COLOR YELLOW (YELLOW)
[2018-04-16 00:01] LABS: URINE BACTERIA SMALL (NEG); URINE EPITHELIAL CELLS 0 - 2 /hpf (0-5); URINE RBC 15 - 20 /hpf (0-2); URINE WBC TNTC /hpf (0-6)
[2018-04-16] MEDS ORDERED: Sodium Chloride 0.9% 1,000 ML IV STA (00:27)
[2018-04-16] MEDS ORDERED: cefTRIAXone 1 gm 1 GM/100 ML BAG IVPB STA (00:27)
[2018-04-16 00:44] LABS: ALB/GLOB RATIO 1.2 (1.1-1.8); ALBUMIN 4.2 g/dL (3.0-4.8); ALT/SGPT 26 U/L (7-56); AST/SGOT 36 U/L (14-36); BLOOD UREA NITROGEN 33 mg/dL (7-21); CALCIUM 9.4 mg/dL (8.4-10.5); GFR NON-AFRICAN AMERICAN > 60
[2018-04-16 02:55] VITALS: BP 129/78; PULSE 86
--- NOTE | 2018-04-16 10:40 | CT ---
Date of service: 04/16/2018 PROCEDURE: CT Abdomen and Pelvis without intravenous contrast HISTORY: B/L cva TENDERNESS w/ h/o UTI COMPARISON: None. TECHNIQUE: Without contrast.. Contrast dose: Radiation dose: Total exam DLP = 334.73 mGy-cm. This CT exam was performed using one or more of the following dose reduction techniques: Automated exposure control, adjustment of the mA and/or kV according to patient size, and/or use of iterative reconstruction technique. FINDINGS: LOWER THORAX: Unremarkable. LIVER: Unremarkable. No gross lesion or ductal dilatation. GALLBLADDER AND BILE DUCTS: Multiple gallstones. Calcification of the gallbladder wall PANCREAS: Unremarkable. No gross lesion or ductal dilatation. SPLEEN: Unremarkable. ADRENALS: Unremarkable. No mass. KIDNEYS AND URETERS: Unremarkable. No hydronephrosis. No solid mass. VASCULATURE: Unremarkable. No aortic aneurysm. No aortic atherosclerotic calcification or mural plaque present. BOWEL: Unremarkable. No obstruction. No gross mural thickening. APPENDIX: Unremarkable. Normal appendix. PERITONEUM: Unremarkable. No free fluid. No free air. LYMPH NODES: Unremarkable. No enlarged lymph nodes. BLADDER: Unremarkable. REPRODUCTIVE: Unremarkable. BONES: No acute fracture. OTHER FINDINGS: The report concurs with the preliminary [facility] report IMPRESSION: Multiple gallstones. Calcification of the gallbladder wall No acute intra-abdominal findings
== END 2018-04-16 02:55 | disposition home or self-care (01) ==
LOC: ED 22:08
DX: N30.90 Cystitis, unspecified without hematuria (principal); I10 Essential (primary) hypertension; E78.5 Hyperlipidemia, unspecified; Z86.73 Personal history of transient ischemic attack (TIA), and cerebral infarction without residual deficits
CPT/HCPCS: 74176; 80053; 81001; 85025; 87086; 96361; 96365; 96375; 99284; J0696; J1885; J7030